=== PATIENT | male | born 1940 | race Caucasian/White ===

== ENCOUNTER → 2019-03-28 09:29 | Outpatient (CLI) | payer MEDICARE, SELFPAY ==
[2018-04-04 10:31] VITALS: BMI 24.1
[2019-03-28 10:25] LABS: AST(SGOT) 21 U/L (15-37); Alanine Aminotransfer ALT/SGPT 22 U/L (16-61); Albumin, Serum 3.4 g/dL (3.2-5.0); Alkaline Phosphatase 71 U/L (45-117); Bilirubin, Direct 0.16 mg/dL (0.00-0.30); Cholesterol 108 mg/dL (200); Globulin 3.4 g/dL (2.2-4.2); High Density Lipoprotein 39 mg/dL; Protein, Total 6.8 g/dL (6.4-8.2); Triglycerides 139 mg/dL; Very Low Density Lipoprotein 28 mg/dL (5-40)
== END ==
PROVIDERS: Family Provider Family Medicine; PCP Family Medicine; Referring Provider Internal Medicine Cardiovascular Disease; Visit Provider Internal Medicine Cardiovascular Disease
DX: I25.10 Atherosclerotic heart disease of native coronary artery without angina pectoris (principal); E78.5 Hyperlipidemia, unspecified
CPT/HCPCS: 36415; 80061; 80076

== ENCOUNTER → 2019-04-18 | Outpatient (CLI) | payer MEDICARE, SELFPAY ==
[2019-04-03 11:02] VITALS: BMI 24.0
[2019-04-18 11:13] LABS: Anion Gap 7 (5-15); BUN 43 mg/dL (7-18); Calcium,Total 8.8 mg/dL (8.5-10.1); Chloride 113 mmol/L (98-107); Creatinine, Serum 2.15 mg/dL (0.70-1.30); EST Glomerular Filtration Rate 32 mL/min (>60); Est Glom Filt Rate - Afr Amer 38 mL/min (>60); Glucose 123 mg/dL (74-106); Potassium 5.6 mmol/L (3.5-5.1); Sodium Level 143 mmol/L (136-145)
== END | disposition home or self-care (01) ==
PROVIDERS: Family Provider Family Medicine; PCP Family Medicine
DX: I25.9 Chronic ischemic heart disease, unspecified (principal)
CPT/HCPCS: 36415; 80048

== ENCOUNTER → 2019-04-27 09:11 | Outpatient (CLI) | payer MEDICARE, SELFPAY ==
[2019-04-03 11:02] VITALS: BMI 24.0
[2019-04-27 11:11] LABS: Anion Gap 2 (5-15); BUN 37 mg/dL (7-18); BUN/Creat Ratio 16.9 RATIO (10-20); Calcium,Total 8.6 mg/dL (8.5-10.1); Chloride 113 mmol/L (98-107); Creatinine, Serum 2.19 mg/dL (0.70-1.30); EST Glomerular Filtration Rate 31 mL/min (>60); Est Glom Filt Rate - Afr Amer 38 mL/min (>60); Glucose 122 mg/dL (74-106); Potassium 4.9 mmol/L (3.5-5.1); Sodium Level 139 mmol/L (136-145)
== END ==
PROVIDERS: Family Provider Family Medicine; PCP Family Medicine
DX: I50.22 Chronic systolic (congestive) heart failure (principal)
CPT/HCPCS: 36415; 80048

== ENCOUNTER → 2020-05-28 09:15 | Outpatient (CLI) | payer MEDICARE, SELFPAY ==
[2019-09-06 12:55] VITALS: BMI 22.8
[2020-05-28 10:03] LABS: Anion Gap 5 (5-15); BUN 44 mg/dL (7-18); BUN/Creat Ratio 20.6 RATIO (10-20); Calcium,Total 8.5 mg/dL (8.5-10.1); Chloride 109 mmol/L (98-107); Creatinine, Serum 2.14 mg/dL (0.70-1.30); EST Glomerular Filtration Rate 32 mL/min (>60); Est Glom Filt Rate - Afr Amer 38 mL/min (>60); Glucose 122 mg/dL (74-106); Potassium 4.8 mmol/L (3.5-5.1); Sodium Level 139 mmol/L (136-145)
== END ==
PROVIDERS: PCP Family Medicine
DX: I50.22 Chronic systolic (congestive) heart failure (principal)
CPT/HCPCS: 36415; 80048

== ENCOUNTER → 2020-10-21 11:15 | Outpatient (CLI) | payer MEDICARE, SELFPAY ==
[2020-10-21 10:16] VITALS: BMI 19.5
[2020-10-21 11:37] LABS: Absolute Lymphocyte Count 3.68 X10^3/uL (0.83-4.51); Absolute Neutrophil Count 14.2 X10^3/uL (2.0-7.7); Basophil# 0.08 X10^3/uL; Basophil% 0.4 % (0-1); Eosinophil# 0.99 X10^3/uL; Eosinophils% 4.6 % (0-5); Hematocrit 36.3 % (40-54); Hemoglobin 11.3 g/dL (13.0-16.5); Lymphocyte # 3.68 X10^3/ul (4.0); Lymphocyte % 17.2 % (19-41); Mean Corp Hgb Conc 31.1 g/dL (32-36); Mean Corpuscular Hgb 29.4 pg (27.0-32.0); Mean Corpuscular Volume 94.3 fL (80-94); Mean Platelet Vol. 9.7 fl (6.2-12.0); Monocyte# 2.09 X10^3/uL; Monocyte% 9.8 % (0-10); NRBC Flagged by Analyzer 0 % (0-5); Neutrophil # 14.21 X10^3/uL (2.7-7.7); Neutrophil % 66.2 % (47-70); POSITIVE DIFFERENTIAL YES; Platelet Count 178 K/mm3 (150-450); RBC Distribution Width CV 15.3 % (11.6-14.6); RBC Distribution Width SD 52.7 fl (35.1-43.9); Red Blood Count 3.85 M/mm3 (4.6-6.2); White Blood Count 21.4 K/mm3 (4.4-11.0)
[2020-10-21 11:41] LABS: Differential Indicated SCAN CRITERIA MET
[2020-10-21 12:02] LABS: BNP,B-Type NATRIURETIC PEPTIDE 33.3 pg/mL (0-100)
[2020-10-21 12:18] LABS: ALB/GLOB Ratio 0.8 RATIO (0.9-2.4); AST(SGOT) 45 U/L (15-37); Alanine Aminotransfer ALT/SGPT 40 U/L (16-61); Albumin, Serum 2.7 g/dL (3.2-5.0); Alkaline Phosphatase 468 U/L (45-117); Anion Gap 9 (5-15); BUN 54 mg/dL (7-18); BUN/Creat Ratio 20.3 RATIO (10-20); Calcium,Total 8.8 mg/dL (8.5-10.1); Chloride 106 mmol/L (98-107); Creatinine, Serum 2.66 mg/dL (0.70-1.30); EST Glomerular Filtration Rate 25 mL/min (>60); Est Glom Filt Rate - Afr Amer 30 mL/min (>60); Globulin 3.6 g/dL (2.2-4.2); Glucose 168 mg/dL (74-106); Magnesium 2.2 mg/dL (1.6-2.6); Potassium 5.6 mmol/L (3.5-5.1); Protein, Total 6.3 g/dL (6.4-8.2); Sodium Level 135 mmol/L (136-145); T4 Free Direct 1.15 ng/dL (0.76-1.46); Thyroid Stim Hormone (TSH) 2.44 uIU/mL (0.358-3.74)
[2020-10-22 13:37] LABS: Pathologist Review Reviewed
== END ==
PROVIDERS: PCP Family Medicine; Referring Provider Nurse Practitioner Family; Visit Provider Nurse Practitioner Family
DX: R53.83 Other fatigue (principal); R06.00 Dyspnea, unspecified; I25.10 Atherosclerotic heart disease of native coronary artery without angina pectoris; I44.7 Left bundle-branch block, unspecified; I42.8 Other cardiomyopathies; I10 Essential (primary) hypertension; E78.00 Pure hypercholesterolemia, unspecified; Z95.5 Presence of coronary angioplasty implant and graft; Z95.810 Presence of automatic (implantable) cardiac defibrillator
CPT/HCPCS: 36415; 80053; 83735; 83880; 84439; 84443; 85025

== ENCOUNTER → 2020-10-24 13:58 | Outpatient (CLI) | payer MEDICARE, SELFPAY ==
[2020-10-21 10:16] VITALS: BMI 19.5
--- NOTE | 2020-10-24 13:59 | ECHOD_ITS ---
Reason For Study: CHF Procedure This was a 2D Doppler, Color Flow transthoracic echocardiogram. The study was technically difficult. Due to respiratory interference. Exam performed in department. Left Ventricle Normal LV size. Left ventricular systolic function is normal. The estimated ejection fraction is 55 %. Stage 1 diastolic dysfunction. No regional wall motion abnormalities noted. Right Ventricle Normal RV size. ICD or pacer leads identified within the right ventricle. Normal systolic function. Atria Normal left atrium. Normal right atrium. Mitral Valve Normal mitral valve. Tricuspid Valve Normal tricuspid valve. Mild (1+) tricuspid valve insufficiency. Pulmonary artery systolic pressure is 40 mmHg. Aortic Valve Normal aortic valve. Trisinus/trileaflet aortic valve. Pulmonic Valve Normal pulmonic valve. Great Vessels Normal aortic root. The pulmonary artery is normal size. Normal inferior vena cava. Pericardium/Pleural No pericardial effusion. MMode/2D Measurements & Calculations LVIDd: 3.9 cm IVSd: 0.82 cm Ao root diam: 3.4 cm LVIDs: 2.7 cm LVPWd: 0.84 cm RVDd: 3.5 cm FS: 30.7 % LAV(MOD-bp): 29.0 ml LA A4 area: 11.7 cm2 LA dimension(2D): 2.6 cm LAV(MOD-bp) Indexed: 17.5 ml/m2 LAV(MOD-sp2): 30.4 ml LAV(MOD-sp4): 27.1 ml RA A4 area: 9.9 cm2 Time Measurements MV dec time: 0.22 sec Doppler Measurements & Calculations MV E max horace: 53.6 cm/sec Lat Peak E' Horace: 6.5 cm/sec Med Peak E' Horace: 7.7 cm/sec MV A max horace: 64.4 cm/sec E/E' lat: 8.2 E/E' med: 7.0 MV E/A: 0.83 Ao V2 max: 94.8 cm/sec LV V1 max: 80.5 cm/sec PA V2 max: 87.7 cm/sec Ao max P.6 mmHg LV V1 max P.6 mmHg PI dec slope: 190.1 cm/sec2 TR max horace: 313.7 cm/sec TR max P.7 mmHg Interpretation Summary Normal LV size. Left ventricular systolic function is normal. The estimated ejection fraction is 55 %. Pulmonary artery systolic pressure is 40 mmHg. Stage 1 diastolic dysfunction. ICD or pacer leads identified within the right ventricle. Ordering Physician: Nirav Flores Referring Physician: Stanton Leonard Performed By: Siomara Covarrubias RVT, RDCS and Student
--- NOTE | 2020-10-24 14:54 | RAD_ITS ---
ACR Level 3 findings have been noted. An addendum which confirms receipt of the report will follow. HISTORY: COUGH, FATIGUE, LEUKOCYTOSIS EXAM: XR Chest 2 Views: COMPARISON: None FINDINGS: # of images incl. paperwork: 2 Left chest wall, triple lead cardiac pacer/defibrillator is in place. Calcific plaque within the aortic arch. Some basilar lung disease is present. Disease greatest on the left. Heart is not enlarged. Kyphosis. Multilevel degenerative disc disease. Calcific plaque within the abdominal aorta and splenic artery Pulmonary vascularity is distinct. There may be small left pleural effusions. RAD/Chest PA and Lateral IMPRESSION: Left lower lobe airspace disease with left pleural effusion suggestive of pneumonia.. at 0649 Reported and signed by: Alireza Aponte MD Electronically Signed: Alireza Aponte MD at 6:48 EST Tel , Service support ,
== END ==
PROVIDERS: PCP Family Medicine; Referring Provider Nurse Practitioner Family; Visit Provider Nurse Practitioner Family
DX: I25.10 Atherosclerotic heart disease of native coronary artery without angina pectoris (principal); I44.7 Left bundle-branch block, unspecified; I42.8 Other cardiomyopathies; Z95.5 Presence of coronary angioplasty implant and graft; R05 Cough
CPT/HCPCS: 71046; 93306

== ENCOUNTER → 2020-11-05 11:31 | Outpatient (CLI) | payer MEDICARE, SELFPAY ==
[2020-10-21 10:16] VITALS: BMI 19.5
[2020-11-05 10:52] VITALS: BMI 19.4
--- NOTE | 2020-11-05 11:45 | RAD_ITS ---
STUDY: X-RAY CHEST REASON FOR EXAM: Male, 80 years old. Cough, weakness, previous pneumonia. TECHNIQUE: PA and lateral views of the chest. COMPARISON: Comparison is made with prior study dated 10/24/2020. FINDINGS: Patchy infiltrates are seen at both lung bases worse on the left side. There is a 2.6 cm x 1.8 cm nodule in the lateral aspect of the right lower lobe. Follow-up is recommended. There is no demonstrated pleural abnormality. Normal size heart. A dual-chamber pacemaker is seen on the left side. Normal mediastinum and pavan. Normal visualized pulmonary arteries. There is atherosclerotic calcification of the aortic arch with tortuosity. There are diffuse degenerative changes of the visualized thoracic spine. There is degenerative osteoarthritis of the bilateral shoulders. There is no demonstrated abnormality of the visualized soft tissue structures of the upper abdomen. RAD/Chest PA and Lateral IMPRESSION: Since prior study, there is an progressive bibasilar infiltrates more prominent on the left side. Follow-up is recommended. Electronically Signed: Scooby Solorio, at 12:40 EST , Service support ,
[2020-11-05 12:47] LABS: Hemoglobin 12.6 g/dL (13.0-16.5); Mean Corp Hgb Conc 32.3 g/dL (32-36); Mean Corpuscular Hgb 28.6 pg (27.0-32.0); Mean Corpuscular Volume 88.4 fL (80-94); Mean Platelet Vol. 9.3 fl (6.2-12.0); POSITIVE COUNT YES; POSITIVE DIFFERENTIAL YES; POSITIVE MORPHOLOGY YES; Platelet Count 187 K/mm3 (150-450); RBC Distribution Width CV 15.3 % (11.6-14.6); RBC Distribution Width SD 49.9 fl (35.1-43.9); Red Blood Count 4.41 M/mm3 (4.6-6.2)
[2020-11-05 13:03] LABS: Differential Indicated MANUAL DIFF
[2020-11-05 13:16] LABS: ALB/GLOB Ratio 0.6 RATIO (0.9-2.4); AST(SGOT) 53 U/L (15-37); Alanine Aminotransfer ALT/SGPT 37 U/L (16-61); Albumin, Serum 2.5 g/dL (3.2-5.0); Alkaline Phosphatase 753 U/L (45-117); Anion Gap 13 (5-15); BUN 96 mg/dL (7-18); BUN/Creat Ratio 18.7 RATIO (10-20); Calcium,Total 8.3 mg/dL (8.5-10.1); Chloride 95 mmol/L (98-107); Creatinine, Serum 5.14 mg/dL (0.70-1.30); EST Glomerular Filtration Rate 12 mL/min (>60); Est Glom Filt Rate - Afr Amer 14 mL/min (>60); Globulin 3.9 g/dL (2.2-4.2); Glucose 159 mg/dL (74-106); Potassium 4.5 mmol/L (3.5-5.1); Protein, Total 6.4 g/dL (6.4-8.2); Sodium Level 127 mmol/L (136-145)
[2020-11-05 13:38] LABS: White Blood Count 32.4 K/mm3 (4.4-11.0)
[2020-11-05 13:55] LABS: Eosinophil 6 % (0-5); Lymphocyte 17 % (19-41); Monocyte 12 % (0-10); Neutrophil-Band 18 % (0-5); Neutrophil-Segmented 47 % (47-70); Total Cells Counted 100 (MANUAL DIFF)
[2020-11-05 13:56] LABS: Platelet Estimate ADEQUATE (ADEQ); Red Cell Morphology NORM C+C NORMAL (NORM C&C)
[2020-11-05 13:57] LABS: Absolute Neutrophil Count 21.1 X10^3/uL (2.0-7.7)
[2020-11-05 13:58] LABS: Absolute Lymphocyte Count 5.51 X10^3/uL (0.83-4.51)
[2020-11-05 14:01] LABS: Reactive Lymphocyte 1+
[2020-11-06 10:16] LABS: Pathologist Review Reviewed
== END ==
LOC: LAB.FUTURE 11:34 → RAD 11:37
PROVIDERS: PCP Family Medicine; Referring Provider Nurse Practitioner Family; Visit Provider Nurse Practitioner Family
DX: J18.9 Pneumonia, unspecified organism (principal)
CPT/HCPCS: 36415; 71046; 80053; 85025

== ENCOUNTER 2020-11-05 14:45 | Inpatient (IN) | payer MEDICARE, SELFPAY ==
[2020-11-05] VITALS (22 sets, daily range): BP systolic 68–135; BP diastolic 31–77; PULSE 72–107; RESP 12–22; TEMP 35.7–36.7; O2SAT 93–100; BMI 19.4; BMI 42.7; BMI 20.7; BMI 20.1
--- NOTE | 2020-11-05 15:07 | ED.VISSUMM ---
- ER Visit Summary Date of Service: 11/05/20 Chief Complaint: Cough, recent pneumonia History of Present Illness: The patient is a 80 M who presents with worsening cough. Patient was diagnosed with pneumonia 2 weeks ago. Patient had a follow-up appointment today and the chest x-ray shows worsening pneumonia. Patient also had lab work drawn which was getting worse. Patient states he feels weak all over. Patient denies any shortness of breath. Patient denies any sputum production. Patient denies any fevers or chills. Patient denies any nausea or vomiting. Patient denies any chest pain. Physical Examination: Vital signs are stable except for low blood pressure of 81/47 and a mild tachycardia of 107. Patient is afebrile. Patient is in no acute distress. Oral mucosa is pink and somewhat dry. Neck is supple. Trachea is midline. There is no JVD. Heart was regular and tachycardic. Lungs were diminished bilaterally. There is good respiratory effort noted. Abdomen is soft. Bowel sounds are normal. There is no tenderness. Cranial nerves II through XII are intact. There are no focal motor or sensory deficits. Test Results: Chest x-ray from earlier today was reviewed and does show worsening bilateral lower lobe infiltrates. CBC from earlier today shows a leukocytosis of 32.7. Comprehensive metabolic profile from earlier today showed a creatinine of 5.19 which was increased from previous results. EKG was obtained. On my interpretation, there is a paced rhythm with a rate of 93. There are no acute ST or T wave changes. PT with INR and PTT were normal. Troponin was normal. COVID-19 rapid antigen was obtained and was negative. Blood cultures were obtained and are pending. Urinalysis was ordered. There is no evidence of urinary tract infection. Emergency Department Course and Treatment: Patient was given IV fluids. Patient's blood pressure improved to 135/74. Patient was started on Zosyn and vancomycin. Patient is resting comfortably on reevaluation. Case was discussed with the hospitalist. Patient will be admitted to PCU. Family understands and is agreeable with the plan. All questions were answered. Disposition: Admit to hospital Impression: 1. Pneumonia 2. Severe sepsis Critical care time: 45 minutes. This was time spent obtaining history, performing physical examination, documenting, interpreting test results, discussion with consultants, and determining disposition. This note was generated with Dragon dictation software. It may contain incorrect words, spelling, and punctuation that were not noted in review of the chart prior to signing ED Disposition - Plan for ED Patient: Disposition: Acute Care Hospital [facility] Diagnosis: Pneumonia
[2020-11-05] MEDS: 0.9% Normal Saline 1,000 ML 1000 ML IV (15:29)
[2020-11-05 15:49] LABS: International Normalized Ratio 1.2; Prothrombin Time (Protime)PT. 14.8 SECONDS (11.7-14.9)
[2020-11-05 15:50] LABS: Partial Thromboplast Time 26.7 Seconds (24.1-36.2)
[2020-11-05 16:29] LABS: Lactic Acid 3.6 mmol/L (0.4-1.9)
[2020-11-05] MEDS: 0.9% Normal Saline 1,000 ML 999 ML IV ×2 (17:01→18:36)
[2020-11-05 17:02] LABS: Mucous, Urine 0 SEEN /hpf (<or=2+); Red Blood Cells-Urine 0 SEEN /hpf (0-5); Squamous Epithelial Cells - UA 0 SEEN /hpf (0-5); White Blood Cells 0 SEEN /hpf (0-5)
[2020-11-05 17:06] LABS: Color, Urine Yellow (Yellow); Glucose, Dipstick Normal (Normal); Ketone-Dipstick Negative (Negative); Leukocyte Esterase-Dipstick Negative /ul (Negative); Nitrite-Dipstick Negative (Negative); Occult Blood-Urine 50 /ul (Negative); Protein-Dipstick 100 mg/dl (Negative); Specific Gravity, Urine 1.015 (1.002-1.030); Urine Bilirubin Dipstick Negative (Negative); Urine Clarity Clear (Clear); Urine Urobilinogen Normal (Normal)
[2020-11-05 17:17] LABS: Amorphous Sediment 1+; Bacteria 2+ /hpf (None Seen)
--- NOTE | 2020-11-05 19:15 | PCS.PANDOC ---
PANDEMIC DOCUMENTATION INITIATED: Date: 11/05/2020 Time: 1914
[2020-11-05 19:30] LABS: Reflex Lactate? Y
[2020-11-05] MEDS: 0.9% Normal Saline 1,000 ML 150 ML IV (20:05)
[2020-11-05 20:35] LABS: Lactic Acid 2.1 mmol/L (0.4-1.9)
[2020-11-05] MEDS: 0.9% Saline Lock 10 ML Syringe IV (20:47)
[2020-11-05] MEDS: Heparin Injection (Vial) 5,000 UNIT/ML VIAL 5000 UNIT SC (20:49)
--- NOTE | 2020-11-05 20:57 | HP.PCM_ITS ---
Problem List (1) Shortness of breath Status: Acute (2) Community acquired pneumonia Status: Acute Qualifiers: Laterality: left Lung location: lower lobe of lung Qualified Code(s): J18.9 - Pneumonia, unspecified organism History of Present Illness Date of Admission: 11/05/20 Chief Complaint: Shortness of breath, community-acquired pneumonia The patient is a 80 year old M who was seen in the emergency room at [facility] after being directed there by his PCP due to increased shortness of breath and community-acquired pneumonia. Patient had been treated as an outpatient with Levaquin for 10 days for community-acquired pneumonia, according to the , he had not improved during this time. Patient has a dry cough, states he is weak and he is not running a fever at home. Patient had outpatient labs drawn on 11/05/2020 which were abnormal for white blood cell count of 32.4, hemoglobin was 12.6, chemistry profile showed a sodium of 127, chloride of 95, creatinine of 5.14, BUN of 96, alkaline phosphatase of 753, AST of 53, and the patient's lactic acid was 2.1. Patient's blood pressure was low in the emergency room and he was given additional fluids with some rise in the patient's blood pressure. Patient required only 2 L of oxygen to maintain his pulse ox. Patient was afebrile. Patient's rapid Covid test was negative. Patient was given IV vancomycin and Zosyn in the emergency room, he will be admitted to PCU for severe sepsis and community-acquired pneumonia with acute renal failure. I will keep the patient on Zosyn and add Zithromax for further coverage, I talked briefly with infectious diseases tonight he will see the patient in consultation, patient will also need to see pulmonary medicine. Patient's history was obtained from the patient's due to patient's lethargy and fatigue. Past Medical History Past Medical History (Chronic Problems): Chronic Problems (Last Reviewed 07/04/20 @ 14:[address] 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 Bowen Aranda MD) Father CAD (coronary artery disease) Hypertension Mother CVA (cerebral vascular accident) Heart disease Myocardial infarction Sister Breast cancer History Items: Heart Disease Paternal Family History: Family History (Last Reviewed 07/04/20 @ 14:[address] Bowen Aranda MD) Father CAD (coronary artery disease) Hypertension Mother CVA (cerebral vascular accident) Heart disease Myocardial infarction Sister Breast cancer History Items: Heart Disease Review of Systems Comment: View of systems was unobtainable from the patient, medical information was obtained from the patient's spouse due to patient's fatigue and somnolence. VTE Information - Inpt Only VTE Present on Admission: No VTE Mechan Device Prophylaxis: None VTE Pharm Prophylaxis ordered?: Yes Patient Problems: Active and Suspected Problems (Last Reviewed 07/04/20 @ 14:[address] Bowen Aranda MD) Pneumonia (Acute) - Physical Exam Vitals/I&O's: Vital Signs Temp Pulse Resp BP Pulse Ox 97.8 F 93 18 93/77 98 11/05/20 19:30 11/05/20 20:06 11/05/20 19:30 11/05/20 19:30 11/05/20 19:30 Oxygen Flow Rate (L/min) 2 Oxygen Delivery Method Room Air Weight: 58.1 kg Body Mass Index (BMI) 20.0 Intake and Output for Last 24 Hours 11/03/20 11/04/20 11/05/20 23:59 23:59 23:59 Intake Total 3740 / 3740 Balance 3740 / 3740 General: Cooperative, No apparent distress, Well developed, Lethargic HEENT: Atraumatic, PERRLA, EOMI, Normocephalic Oral: Moist Mucosa Neck: Supple, No JVD, Negative Carotid Bruits, Trachea Midline, Thyroid Normal Size and Texture Lungs: Normal air movement, No rhonchi, No wheeze, Rales - Inspiratory rales over the left lower lung field Cardiovascular: Regular rate, Regular Rhythm, Normal S1, Normal S2, No murmurs, PMI Normal, No rub noted Abdomen: Bowel Sounds Present, Soft, Non Tender, Non-Distended, No hernias noted Extremities: No clubbing, No cyanosis, No edema, Capillary Refill Less than 3 Seconds Skin: No rashes, No breakdown Musculoskeletal: No Tenderness to Palpation of Joints or Extremities Neurological: Cranial nerves II-XII grossly intact, Neuro grossly intact, Sensory exam intact to light touch and pain Psych/Mental Status: Flat Affect, - - Patient is lethargic and fatigued Microbiology Past 72 Hours 11/05/20 16:55 Urine, Random Legionella Antigen - Final 11/05/20 16:55 Urine, Random Streptococcus pneumoniae Antigen (M - Final 11/05/20 15:30 Mucosa - Nose SARS-CoV-2 Antigen (Rapid) - Final Laboratory Results 11/05/20 15:25: Troponin I 0.020 11/05/20 15:25: PT 14.8, INR 1.2, APTT 26.7 11/05/20 15:25: Lactic Acid 3.6 H* 11/05/20 16:55: Urine Color Yellow, Urine Clarity Clear, Urine pH 5.0, Ur Specific [place] 1.015, Urine Protein 100 H, Urine Glucose (UA) Normal, Urine Ketones Negative, Urine Occult Blood 50 H, Urine Nitrite Negative, Urine Bilirubin Negative, Urine Urobilinogen Normal, Ur Leukocyte Esterase Negative, Urine RBC 0 SEEN, Urine WBC 0 SEEN, Ur Squamous Epith Cells 0 SEEN, Amorphous Sediment 1+, Urine Bacteria 2+, Urine Mucus 0 SEEN 11/05/20 19:49: Lactic Acid 2.1 H* Current Medications Acetaminophen (Acetaminophen 325 Mg Tablet) 650 mg PO Q6H PRN PRN PRN Reason: Pain Score 1-10/Temp > 100.7 F Albuterol Sulfate (Albuterol 2.5 Mg/3 Ml Vial.Neb.) 2.5 mg INHALATION Q2H PRN PRN PRN Reason: SOB/Wheezing Albuterol/Ipratropium (Ipratropium/Albuterol Sulfate 3 Ml Ampul.Neb) 3 ml INHALATION Q6H.RT [facility] Aspirin (Aspirin E.C. 81 Mg Tablet) 81 mg PO DAILY@0800 [facility] Atorvastatin Calcium (Atorvastatin Calcium 40 Mg Tablet) 40 mg PO QHS [facility] Heparin Sodium (Porcine) (Heparin Injection (Vial) 5,000 Unit/Ml Vial) 5,000 unit SC Q12 [facility] Last Admin: 11/05/20 20:49 Dose: 5,000 unit Documented by: Sodium Chloride () 1,000 mls @ 150 mls/hr IV .Q6H40M [facility] Last Infusion: 11/05/20 20:45 Dose: 0 mls/hr Documented by: Azithromycin 500 mg/ Dextrose 255 mls @ 250 mls/hr IV Q24@2200 [facility] Stop: 11/11/20 22:01 Azithromycin 500 mg/ Dextrose 255 mls @ 250 mls/hr IV X1 ONE Stop: 11/05/20 21:01 Last Admin: 11/05/20 20:12 Dose: 250 mls/hr Documented by: Piperacillin Sod/Tazobactam (Sod 3.375 gm/ Sodium Chloride) 50 mls @ 12.5 mls/hr IV Q8 LUZ Sodium Chloride () 500 mls @ 500 mls/hr IV .Q1H LUZ Stop: 11/05/20 21:44 Last Admin: 11/05/20 20:45 Dose: 500 mls/hr Documented by: Nitroglycerin (Nitroglycerin (Inpatient Use) 0.4 Mg Tab.Subl) 0.4 mg SUBLINGUAL Q5M PRN PRN Reason: chest pain Nutritional Formula (Lactose Free) (Ensure Enlive 120 Ml Liquid) 120 ml PO 4X/DAY LUZ Last Admin: 11/05/20 20:50 Dose: 120 ml Documented by: Ondansetron HCl (Ondansetron 4 Mg/2 Ml Vial) 4 mg IV Q8H PRN PRN PRN Reason: NAUSEA/VOMITING Sodium Chloride (0.9% Saline Lock 10 Ml Syringe) 10 - 40 ml IV UD PRN PRN Reason: SALINE FLUSH Last Admin: 11/05/20 20:47 Dose: 10 ml Documented by: Assessment/Plan All Active Problems (Last Reviewed 07/04/20 @ 14:[address] Bowen Aranda MD) Pneumonia (Acute) Shortness of breath (Acute) Community acquired pneumonia (Acute) History of coronary artery stent placement (Resolved 05/21/09) #1 severe sepsis secondary to community-acquired pneumonia with failed outpatient treatment-patient will be admitted to PCU, he will be seen in consultation by pulmonary medicine and infectious diseases, I will obtain a CT of the chest as well as the abdomen and pelvis tonight. Patient will be maintained on Zosyn and Zithromax #2 community-acquired pneumonia with failed outpatient treatment #3 acute renal failure on a backdrop of chronic kidney disease stage III/stage IV-patient will be given IV fluids, renal functions will be monitored #4 cachexia-etiology unclear, according to patient's , patient has been losing weight since June of this year and has lost approximately 20 pounds, he will be seen by nutritional services #5 history of nonischemic cardiomyopathy-patient's most recent echocardiogram done on 10/24/2020 shows an EF of 55% with mild pulmonary hypertension. #6 mild pulmonary hypertension Inpatient E&M: [id number] Init Hosp L3
--- NOTE | 2020-11-05 22:43 | NURSING ---
Addendum entered by Ayesha Foster 11/05/20 22:49: Yudy updated on pt status. Original Note: Dr. Rios ordered pt to be transfered to ICU d/t hypotension even after boluses. Called report to Ahmet Weber RN. Transfered pt to ICU04. Shelbi Foster RN.
--- NOTE | 2020-11-05 22:48 | PCM.PN.BLA ---
Progress Note Nursing staff called because patient remained hypotensive in spite of IV fluid bolus. He received 1.5 L of IV fluid bolus in the ED and he has been on maintenance fluid at 150 cc/h since admission. Blood pressure remained around 70-80 systolic. Patient denied any dizziness or lightheadedness. Denied chest pain or shortness of breath. He was given another 500 cc of fluid bolus and his blood pressure remained low. He is already on IV Zosyn and Zithromax. COVID-19 antigen came back negative. Chest x-ray reviewed. Plan: Transfer to ICU, critical care consult, will do COVID-19 PCR, continue IV antibiotics, start IV Levophed drip. STROKE Vital Signs/Narrative: Vital Signs Temp Pulse Resp BP BP Pulse Ox 11/05/20 22:16 97.4 F L 96 22 H 69/34 L 97 11/05/20 22:00 74/37 L 11/05/20 21:45 68/31 L 11/05/20 20:20 97.5 F L 95 20 H 76/37 L 97 11/05/20 20:06 93 11/05/20 19:30 97.8 F 96 18 93/77 98
[2020-11-06] VITALS (55 sets, daily range): BP systolic 78–112; BP diastolic 45–65; PULSE 94–111; RESP 14–23; TEMP 35.9–36.7; O2SAT 95–100
[2020-11-06] MEDS: 0.9% Normal Saline 1,000 ML 150 ML IV ×4 (03:16→23:31)
[2020-11-06 03:47] LABS: Hematocrit 34.7 % (40-54); Hemoglobin 11.4 g/dL (13.0-16.5); Mean Corp Hgb Conc 32.9 g/dL (32-36); Mean Corpuscular Hgb 29.4 pg (27.0-32.0); Mean Corpuscular Volume 89.4 fL (80-94); POSITIVE COUNT YES; POSITIVE DIFFERENTIAL YES; POSITIVE MORPHOLOGY YES; Platelet Count 174 K/mm3 (150-450); RBC Distribution Width CV 15.5 % (11.6-14.6); RBC Distribution Width SD 50.4 fl (35.1-43.9); Red Blood Count 3.88 M/mm3 (4.6-6.2)
[2020-11-06 03:52] LABS: Differential Indicated MANUAL DIFF; White Blood Count 36.6 K/mm3 (4.4-11.0)
[2020-11-06 04:03] LABS: ALB/GLOB Ratio 0.6 RATIO (0.9-2.4); AST(SGOT) 64 U/L (15-37); Alanine Aminotransfer ALT/SGPT 33 U/L (16-61); Albumin, Serum 1.9 g/dL (3.2-5.0); Alkaline Phosphatase 654 U/L (45-117); Anion Gap 11 (5-15); BUN 86 mg/dL (7-18); BUN/Creat Ratio 19.5 RATIO (10-20); Calcium,Total 7.1 mg/dL (8.5-10.1); Chloride 105 mmol/L (98-107); Creatinine, Serum 4.41 mg/dL (0.70-1.30); EST Glomerular Filtration Rate 14 mL/min (>60); Est Glom Filt Rate - Afr Amer 17 mL/min (>60); Estimated Creatinine Clearance 11.34 ml/min; Globulin 3.2 g/dL (2.2-4.2); Glucose 116 mg/dL (74-106); Potassium 4.4 mmol/L (3.5-5.1); Protein, Total 5.1 g/dL (6.4-8.2); Sodium Level 131 mmol/L (136-145)
[2020-11-06 05:02] LABS: Total Cells Counted 100 (MANUAL DIFF)
[2020-11-06 05:06] LABS: Eosinophil 4 % (0-5); Lymphocyte 8 % (19-41); Metamyelocyte 1 % (0-1); Monocyte 9 % (0-10); Myelocyte 2 (0-0); Neutrophil-Band 6 % (0-5); Neutrophil-Segmented 70 % (47-70)
[2020-11-06 05:07] LABS: Absolute Lymphocyte Count 2.92 X10^3/uL (0.83-4.51); Absolute Neutrophil Count 27.8 X10^3/uL (2.0-7.7); Lymphocyte # 2.92 X10^3/ul (4.0); Neutrophil # 27.79 X10^3/uL (2.7-7.7)
[2020-11-06 05:09] LABS: Platelet Estimate ADEQUATE (ADEQ)
[2020-11-06 05:12] LABS: Burr Cells RARE; Ovalocyte RARE
--- NOTE | 2020-11-06 06:19 | PCM.CON.CC ---
Reason for Consult Date of Consultation: 11/06/20 Reason for Consultation: Septic shock History of Present Illness: The patient is an 80-year-old male, with a history as outlined below, who presented to the emergency department on November 05 with a worsening cough. The patient does have a history of coronary artery disease status post angioplasty and stenting of his RCA, along with known heart failure. The patient is quite a poor historian with unclear baseline mental status, so only limited history was able to be obtained from the patient. I did call and personally speak with the patient's , Yudy, who indicated to me that the patient has been more confused over the last 3 to 4 weeks and has been losing weight unintentionally as well. She did report that it is their wishes from a CODE STATUS perspective to be made DNR CCA without intubation. On presentation to the emergency department, the patient was noted to be afebrile but was tachycardic and tachypneic. Blood pressures were marginal at 81/47 mmHg. The patient had an elevated white blood cell count to 32,000. Lactate was elevated to 3.6. Troponin was negative. Chemistry profile revealed a creatinine of 5.14. Chest x-ray revealed patchy bilateral infiltrates in the lower lung zones. The patient was initially treated with supplemental IV fluids. Blood pressures apparently improved. The patient was started on broad-spectrum antimicrobials. He was then admitted to the progressive care unit. However, overnight, the patient developed fluid refractory hypotension, which necessitated his transfer to the medical intensive care unit for further management. The patient did have to be started on Levophed, which is currently infusing at 10 mcg/min. Past Medical History Past Medical History (Chronic Problems): Chronic Problems (Last Reviewed 07/04/20 @ 14:[address] Bowen Aranda MD) Atherosclerosis of coronary artery of [place] heart without angina pectoris (Chronic) Biventricular ICD (implantable cardioverter-defibrillator) in place (Chronic 08/02/14) Nonischemic cardiomyopathy (Chronic) Left bundle-branch block (Chronic) Essential (primary) hypertension (Chronic) HLD (hyperlipidemia) (Chronic) Medical History: Medical History (Last Reviewed 07/04/20 @ 14:[address] 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 Bowen Aranda MD) History of coronary artery stent placement (Resolved) Onset Date: 05/21/09 Z95.5 [id number] RCA 05/21/2009 Biventricular ICD (implantable cardioverter-defibrillator) in place (Chronic) Onset Date: 08/02/14 Z95.810 ICD (implantable cardioverter-defibrillator) in place Onset Date: 08/02/14 Z95.810 01/21, upgrade ICD BI-V 08/02/14 Surgical History: - - ICD placement Psychiatric History: No pertinent psych hx Lives: Spouse/ Significant Other Smoking Status: Former smoker Tobacco Use: Cigarettes Alcohol: Rare Drugs: None - *Family History Maternal Family History: Family History (Last Reviewed 07/04/20 @ 14:[address] Bowen Aranda MD) Father CAD (coronary artery disease) Hypertension Mother CVA (cerebral vascular accident) Heart disease Myocardial infarction Sister Breast cancer History Items: Heart Disease Paternal Family History: Family History (Last Reviewed 07/04/20 @ 14:[address] Bowen Aranda MD) Father CAD (coronary artery disease) Hypertension Mother CVA (cerebral vascular accident) Heart disease Myocardial infarction Sister Breast cancer History Items: Heart Disease Review of Systems Unable to obtain accurate/complete ROS d/t: Due to underlying encephalopathy/altered mentation Patient Problems: Active and Suspected Problems (Last Reviewed 07/04/20 @ 14:[address] Bowen Aranda MD) Pneumonia (Acute) Shortness of breath (Acute) Community acquired pneumonia (Acute) Objective: The patient's most recent lab work, culture data and imaging studies have all been personally reviewed. Coronavirus PCR was negative on November 05. Coronavirus rapid antigen testing was also negative. Strep and urine Legionella antigens were negative. Blood and urine cultures are pending. - Physical Exam Vitals/I&O's: Vital Signs Temp Pulse Resp BP Pulse Ox 98.0 F 99 14 102/57 L 96 11/06/20 00:00 11/06/20 05:00 11/06/20 05:00 11/06/20 05:00 11/06/20 05:00 Oxygen Flow Rate (L/min) 2 Oxygen Delivery Method Room Air Weight: 132 lb 4.8 oz Body Mass Index (BMI) 20.0 Intake and Output for Last 24 Hours 11/04/20 11/05/20 11/06/20 23:59 23:59 23:59 Intake Total 4499.70 / 4502.05 966.95 / 966.95 Output Total 0 / 0 150 / 150 Balance 4499.70 / 4502.05 816.95 / 816.95 General: Alert, Confused, Disoriented HEENT: Atraumatic, PERRLA, Normocephalic Oral: Dry Mucosa Neck: Supple, No Nodes, Trachea Midline Lungs: No rhonchi, No wheeze, No rales, Diminished Cardiovascular: Normal S1, Normal S2, Tachycardic Abdomen: Bowel Sounds Present, Soft, Non Tender Extremities: No clubbing, No cyanosis, Edema Skin: No breakdown Musculoskeletal: Cachexia Lymphatic: No Cervical, Supraclavicular, or Inguinal Adenopathy Neurological: - - No focal neurological deficits. Psych/Mental Status: Flat Affect Labs (Last 48 Hours) 11/05/20 11/05/20 11/05/20 15:25 15:25 15:25 WBC RBC Hgb Hct MCV MCH MCHC RDW Std Deviation RDW Coeff of Bala Plt Count MPV Neut % (Auto) Absolute Neuts (auto) Absolute Lymphs (auto) Total Counted Neutrophils % (Manual) Band Neutrophils % Lymphocytes % (Manual) Monocytes % (Manual) Eosinophils % (Manual) Metamyelocytes % Myelocytes % Diff Path Review Platelet Estimate Ovalocytes [place] Cells PT 14.8 INR 1.2 APTT 26.7 Sodium Potassium Chloride Carbon Dioxide Anion Gap BUN Creatinine Estim Creat Clear Calc Est GFR (MDRD) Af Amer Est GFR (MDRD) Non-Af BUN/Creatinine Ratio Glucose Lactic Acid 3.6 H* Calcium Total Bilirubin AST ALT Alkaline Phosphatase Troponin I 0.020 Total Protein Albumin Globulin Albumin/Globulin Ratio Urine Color Urine Clarity Urine pH Ur Specific [place] Urine Protein Urine Glucose (UA) Urine Ketones Urine Occult Blood Urine Nitrite Urine Bilirubin Urine Urobilinogen Ur Leukocyte Esterase Urine RBC Urine WBC Ur Squamous Epith Cells Amorphous Sediment Urine Bacteria Urine Mucus COVID-19 ([facility]) 11/05/20 11/05/20 11/05/20 16:55 19:49 23:20 WBC RBC Hgb Hct MCV MCH MCHC RDW Std Deviation RDW Coeff of Bala Plt Count MPV Neut % (Auto) Absolute Neuts (auto) Absolute Lymphs (auto) Total Counted Neutrophils % (Manual) Band Neutrophils % Lymphocytes % (Manual) Monocytes % (Manual) Eosinophils % (Manual) Metamyelocytes % Myelocytes % Diff Path Review Platelet Estimate Ovalocytes Case Cells PT INR APTT Sodium Potassium Chloride Carbon Dioxide Anion Gap BUN Creatinine Estim Creat Clear Calc Est GFR (MDRD) Af Amer Est GFR (MDRD) Non-Af BUN/Creatinine Ratio Glucose Lactic Acid 2.1 H* Calcium Total Bilirubin AST ALT Alkaline Phosphatase Troponin I Total Protein Albumin Globulin Albumin/Globulin Ratio Urine Color Yellow Urine Clarity Clear Urine pH 5.0 Ur Specific [place] 1.015 Urine Protein 100 H Urine Glucose (UA) Normal Urine Ketones Negative Urine Occult Blood 50 H Urine Nitrite Negative Urine Bilirubin Negative Urine Urobilinogen Normal Ur Leukocyte Esterase Negative Urine RBC 0 SEEN Urine WBC 0 SEEN Ur Squamous Epith Cells 0 SEEN Amorphous Sediment 1+ Urine Bacteria 2+ Urine Mucus 0 SEEN COVID-19 ([facility]) Not Detected 11/06/20 11/06/20 03:25 03:25 WBC 36.6 H* RBC 3.88 L Hgb 11.4 L Hct 34.7 L MCV 89.4 MCH 29.4 MCHC 32.9 RDW Std Deviation 50.4 H RDW Coeff of Bala 15.5 H Plt Count 174 MPV 10.0 Neut % (Auto) Not Reportable Absolute Neuts (auto) 27.8 H Absolute Lymphs (auto) 2.92 Total Counted 100 Neutrophils % (Manual) 70 Band Neutrophils % 6 H Lymphocytes % (Manual) 8 L Monocytes % (Manual) 9 Eosinophils % (Manual) 4 Metamyelocytes % 1 Myelocytes % 2 H Diff Path Review May foll Platelet Estimate ADEQUATE Ovalocytes RARE Case Cells RARE PT INR APTT Sodium 131 L Potassium 4.4 Chloride 105 Carbon Dioxide 15.0 L Anion Gap 11 BUN 86 H Creatinine 4.41 H Estim Creat Clear Calc 11.34 Est GFR (MDRD) Af Amer 17 L Est GFR (MDRD) Non-Af 14 L BUN/Creatinine Ratio 19.5 Glucose 116 H Lactic Acid Calcium 7.1 L Total Bilirubin 0.70 AST 64 H ALT 33 Alkaline Phosphatase 654 H Troponin I Total Protein 5.1 L Albumin 1.9 L Globulin 3.2 Albumin/Globulin Ratio 0.6 L Urine Color Urine Clarity Urine pH Ur Specific [place] Urine Protein Urine Glucose (UA) Urine Ketones Urine Occult Blood Urine Nitrite Urine Bilirubin Urine Urobilinogen Ur Leukocyte Esterase Urine RBC Urine WBC Ur Squamous Epith Cells Amorphous Sediment Urine Bacteria Urine Mucus COVID-19 ([facility]) Microbiology 11/05/20 16:55 Urine, Random Legionella Antigen - Final 11/05/20 16:55 Urine, Random Streptococcus pneumoniae Antigen (M - Final 11/05/20 15:30 Mucosa - Nose SARS-CoV-2 Antigen (Rapid) - Final Current Medications Acetaminophen (Acetaminophen 325 Mg Tablet) 650 mg PO Q6H PRN PRN PRN Reason: Pain Score 1-10/Temp > 100.7 F Albuterol Sulfate (Albuterol 2.5 Mg/3 Ml Vial.Neb.) 2.5 mg INHALATION Q2H PRN PRN PRN Reason: SOB/Wheezing Albuterol/Ipratropium (Ipratropium/Albuterol Sulfate 3 Ml Ampul.Neb) 3 ml INHALATION Q6H.RT LUZ Aspirin (Aspirin E.C. 81 Mg Tablet) 81 mg PO DAILY@0800 [facility] Atorvastatin Calcium (Atorvastatin Calcium 40 Mg Tablet) 40 mg PO QHS [facility] Heparin Sodium (Porcine) (Heparin Injection (Vial) 5,000 Unit/Ml Vial) 5,000 unit SC Q12 [facility] Last Admin: 11/05/20 20:49 Dose: 5,000 unit Documented by: Sodium Chloride () 1,000 mls @ 150 mls/hr IV .Q6H40M [facility] Last Admin: 11/06/20 03:16 Dose: 150 mls/hr Documented by: Azithromycin 500 mg/ Dextrose 255 mls @ 250 mls/hr IV Q24@2200 [facility] Stop: 11/11/20 22:01 Piperacillin Sod/Tazobactam (Sod 3.375 gm/ Sodium Chloride) 50 mls @ 12.5 mls/hr IV Q12 [facility] Norepinephrine Bitartrate 8 mg (/ Sodium Chloride) 250 mls @ 9.375 mls/hr CONT INF .[id number] [facility]; Protocol Last Titration: 11/06/20 05:00 Dose: 10 mcg/min, 18.8 mls/hr Documented by: Nitroglycerin (Nitroglycerin (Inpatient Use) 0.4 Mg Tab.Subl) 0.4 mg SUBLINGUAL Q5M PRN PRN Reason: chest pain Nutritional Formula (Lactose Free) (Ensure Enlive 120 Ml Liquid) 120 ml PO 4X/DAY [facility] Last Admin: 11/05/20 20:50 Dose: 120 ml Documented by: Ondansetron HCl (Ondansetron 4 Mg/2 Ml Vial) 4 mg IV Q8H PRN PRN PRN Reason: NAUSEA/VOMITING Sodium Chloride (0.9% Saline Lock 10 Ml Syringe) 10 - 40 ml IV UD PRN PRN Reason: SALINE FLUSH Last Admin: 11/05/20 20:47 Dose: 10 ml Documented by: Assessment/Plan Active and Suspected Problems (Last Reviewed 07/04/20 @ 14:[address] Bowen Aranda MD) Pneumonia (Acute) Shortness of breath (Acute) Community acquired pneumonia (Acute) RECOMMENDATIONS: 1. Check MRSA screen and respiratory viral panel. 2. Discontinue scheduled bronchodilators. 3. Continue Levophed to maintain a mean arterial pressure at or above 65 mmHg. 4. Continue gentle IV fluid hydration. 5. Obtain CT chest. 6. Dietary consultation due to unintentional weight loss. 7. Physical therapy evaluation once medically stabilized. IMPRESSIONS: 1. Septic shock The patient was initially admitted to the hospital with worsening cough and radiographic evidence of worsening bilateral pneumonia. The patient initially met severe sepsis criteria, but then developed fluid refractory hypotension necessitating vasopressor support. He was subsequently transferred to the medical intensive care unit. At the present time, agree with continuing broad-spectrum antimicrobial coverage. Levophed will be continued to maintain a mean arterial pressure at or above 65 mmHg. 2. Acute on chronic kidney disease Likely prerenal in etiology with a component of ischemic ATN in the setting of septic shock. Plan to continue vasopressor support to maintain a mean arterial pressure at or above 65 mmHg. 3. Encephalopathy Potentially metabolic in etiology and related to underlying infection. The patient has apparently been declining from a mental status perspective over the last 3 to 4 weeks. If the patient's mentation does not begin to improve with treatment of his infection, recommend dedicated head imaging. 4. Heart failure with preserved ejection fraction/pulmonary hypertension Continue current supportive measures as noted above. 5. Advanced age/hyperlipidemia/history of coronary artery disease Complicates care, management, recovery and prognosis. Continue home medications as indicated. CODE status: Discussed CODE status at length including difference between FULL code, DNR-CCA and DNR-CC status. Following discussions about the differences in these status, patient's requested DNR CCA without intubation CODE STATUS. TIME: 42 minutes of critical care time, independent of procedures, was spent addressing the patient's septic shock, acute on chronic kidney disease, encephalopathy, heart failure with preserved ejection fraction, review of all data and collaboration with the care team. [id number]) [id number] Critical care first hour
[2020-11-06] MEDS: Ipratropium/Albuterol Sulfate 3 ML AMPUL.NEB INHALATION (07:01)
--- NOTE | 2020-11-06 08:14 | PCM.RX.CS ---
Consult Pharmacy has been consulted to manage selected antiobiotic: Vancomycin Type of Consult: New start Suspected Infection: Sepsis Labs: Sodium 131 mmol/L (136-145) L 11/06/20 03:25 Potassium 4.4 mmol/L (3.5-5.1) 11/06/20 03:25 Chloride 105 mmol/L (98-107) 11/06/20 03:25 Carbon Dioxide 15.0 mmol/L (21.0-32.0) L 11/06/20 03:25 Anion Gap 11 (5-15) 11/06/20 03:25 BUN 86 mg/dL (7-18) H 11/06/20 03:25 Creatinine 4.41 mg/dL (0.70-1.30) H 11/06/20 03:25 Est GFR (MDRD) Af Amer 17 mL/min (>60) L 11/06/20 03:25 Est GFR (MDRD) Non-Af 14 mL/min (>60) L 11/06/20 03:25 BUN/Creatinine Ratio 19.5 RATIO (10-20) 11/06/20 03:25 Glucose 116 mg/dL (74-106) H 11/06/20 03:25 Microbiology: Microbiology 11/05/20 16:55 Urine, Random Legionella Antigen - Final 11/05/20 16:55 Urine, Random Streptococcus pneumoniae Antigen (M - Final 11/05/20 15:30 Mucosa - Nose SARS-CoV-2 Antigen (Rapid) - Final Weight used for dosin kg Estimated Creatinine Clearance: 11ml/min Goal Trough: 15-20 mcg/mL Pharmacy Plan for Drug Dosing: NEW START IV VANCOMYCIN Consulting Physician: Wild Indication: Severe Sepsis, Pneumonia Goal Trough: 15-20 SrCr: 4.41 CrCl: 11.34 Comments: pt is currently not on dialysis. pt received a x1 dose of 2000mg in the er on 11/05/20 at 1826. due to renal function recommend drawning a random level on 11/07 at 0600 and re-dosing based on that result. Vancomcyin Dose: none due to renal function Pending Level: 11/07 at 0600 Pharmacy Service will continue to monitor and adjust dosing as required. Follow-Up Labs: Trough Vancomycin - 11/07 at 0600 (random)
--- NOTE | 2020-11-06 09:12 | CASEMGMT ---
RN CM Assessment Note Introduced role of CM to patient's via phone. Patient is confused and unable to participate in assessment. Demographics, PCP verified. states until recent illness, patient was independent, however became very weak past few days. Their children helped him up the stairs and she assisted with ADL's. Patient would use cane only out of doors. They have a walker and wheelchair available if needed. Presentation: recent history of pneumonia 2 weeks ago. Saw PCP day of admission and had worsening pneumonia Diagnosis: pneumonia, sepsis PCP: Dr. Leonard Specialists: Dr. Aranda Insurance: [facility] Preferred Pharmacy: [facility] Prescription Benefit: yes LNOK: Living Arrangements: Lives in two story home with bedroom, baths upstairs. Tranportation: family DME: cane walker wheelchair only. HHC: none SNF: none Patient DC Goals: home DC Plan: undetermined. Recommend PT/OT when medically ready. CM available for discharge planning coordination. Contact CM for any concerns/needs that may arise. Yon OSORION RN ACM
[2020-11-06] MEDS: TITRATION PARAMETER CHANGE 1 EACH IV (09:32)
[2020-11-06 10:04] LABS: M R Staph aureus DNA By PCR Negative (Negative); Probe Check PASS; Specimen Processing Control PASS
[2020-11-06 10:22] LABS: Pathologist Review Reviewed
[2020-11-06] MEDS: Heparin Injection (Vial) 5,000 UNIT/ML VIAL 5000 UNIT SC ×2 (10:26→21:21)
[2020-11-06] MEDS: Aspirin E.C. 81 MG Tablet PO (10:26)
--- NOTE | 2020-11-06 11:34 | ECHOL_ITS ---
Reason For Study: S/P CABG Procedure This was a limited 2D transthoracic echocardiogram. The exam was of poor technical quality due to respiratory interference.. Pt not responsive to help with positioning and holding breath. Tachycardia. The study was technically difficult. Limited views were obtained. Exam performed portable in ICU/CCU. Left Ventricle Left ventricular systolic function is normal. The estimated ejection fraction is 60 %. Right Ventricle ICD or pacer leads identified within the right ventricle. Normal systolic function. Atria ICD or pacer leads identified within the right atrium. Pericardium/Pleural Small to moderate pericardial effusion. There are no echocardiographic indications of cardiac tamponade. Doppler Measurements & Calculations TR max kristopher: 342.8 cm/sec TR max P.0 mmHg Interpretation Summary The study was technically difficult. Limited views were obtained. Left ventricular systolic function is normal. The estimated ejection fraction is 60 %. Small to moderate pericardial effusion. There are no echocardiographic indications of cardiac tamponade. ICD or pacer leads identified within the right atrium ICD or pacer leads identified within the right ventricle. Compared to the previous transthoracic echocardiogram from 10-24-2020: The pericardial effusion appears to be somewhat more prominent at this time. Ordering Physician: Flor Del Cid Referring Physician: FLOR WILEY Performed By: Zari Cartagena, SAGE, RVT
--- NOTE | 2020-11-06 12:50 | CT_ITS ---
STUDY: CT BRAIN WITHOUT CONTRAST REASON FOR EXAM: Male, 80 years old. ALTERED MENTAL STATUS/SOB/PNEUMONIA RADIATION DOSAGE (If Supplied By Facility): CTDIvol = ( 44.99 ) mGy, DLP = ( 832.67 ) mGycm TECHNIQUE: Transaxial CT imaging of the brain was performed without administration of intravenous contrast material. Individualized dose optimization techniques were used for this CT. COMPARISON: No relevant priors. FINDINGS: Normal soft tissue structures. Normal calvarium. There is mild cerebral atrophy with widening of the extra-axial spaces and ventricular dilatation. There are areas of decreased attenuation within the white matter tracts of the supratentorial brain, consistent with microvascular disease changes. There are small punctate calcifications of the basal ganglia which are seen in the aging brain as a normal variant. Normal brainstem. There is mild cerebellar atrophy. There is no intracranial hemorrhage. There are no findings of an acute ischemic infarction. Atherosclerotic calcification of the cavernous portions of the internal carotid arteries bilaterally. Normal visualized paranasal sinuses. CT/Brain/Head without Contrast IMPRESSION: Chronic involutional changes of the brain. Electronically Signed: Scooby Solorio, at 14:18 EST , Service support ,
--- NOTE | 2020-11-06 12:51 | PCM.HP.ID ---
Problem List (1) Pneumonia Status: Acute Reason for Consult: shock Consulted by: Dr. Del Cid History of Present Illness: The patient is a 80 year old M with h/o CHF, device placement, presented with 3-4 weeks of weakness, confusion, weight loss, and cough. Pt unable to provide history. Found to have JARED on CKD, septic shock, admitted to icu on vanc/zosyn. ROS unobtainable due to mental status. - Medical History Past Medical History (Chronic Problems): Chronic Problems (Last Reviewed 07/04/20 @ 14:[address] Bowen Aranda MD) Atherosclerosis of coronary artery of [place] heart without angina pectoris (Chronic) Biventricular ICD (implantable cardioverter-defibrillator) in place (Chronic 08/02/14) Nonischemic cardiomyopathy (Chronic) Left bundle-branch block (Chronic) Essential (primary) hypertension (Chronic) HLD (hyperlipidemia) (Chronic) Allergies/Adverse Reactions: Allergies No Known Allergies Allergy (Verified 11/05/20 14:48) Home Medications: Ambulatory Orders Medication Instructions Recorded nitroglycerin 0.4 mg sublingual 0.4 mg SUBLINGUAL Q5M PRN 03/28/18 tablet Aspirin [Aspirin EC] 81 mg PO DAILY@0800 11/05/20 Rosuvastatin Calcium 20 mg PO DAILY 11/05/20 megestrol 40 mg tablet 40 mg PO BID tab 11/05/20 - Social History SMOKING STATUS:: Former smoker Vital Signs Temp Pulse Resp BP Pulse Ox 97.3 F L 105 H 21 H 102/55 L 96 11/06/20 10:00 11/06/20 11:45 11/06/20 11:00 11/06/20 11:45 11/06/20 11:00 Oxygen Flow Rate (L/min) 2 Oxygen Delivery Method Room Air Weight: 61.19 kg Body Mass Index (BMI) 20.0 Microbiology Past 72 Hours 11/05/20 16:55 Urine Culture - Preliminary Urine, Clean Catch Culture exhibits no growth. 11/06/20 06:55 Respiratory Panel (PCR) - Final Mucosa - Nose 11/05/20 16:55 Legionella Antigen - Final Urine, Random 11/05/20 16:55 Streptococcus pneumoniae Antigen (M - Final Urine, Random 11/05/20 15:30 SARS-CoV-2 Antigen (Rapid) - Final Mucosa - Nose Laboratory Tests Past 24 Hrs 11/05/20 11/05/20 11/05/20 15:25 15:25 15:25 WBC RBC Hgb Hct MCV MCH MCHC RDW Std Deviation RDW Coeff of Bala Plt Count MPV Neut % (Auto) Absolute Neuts (auto) Absolute Lymphs (auto) Total Counted Neutrophils % (Manual) Band Neutrophils % Lymphocytes % (Manual) Monocytes % (Manual) Eosinophils % (Manual) Metamyelocytes % Myelocytes % Diff Path Review Platelet Estimate Ovalocytes [place] Cells PT 14.8 INR 1.2 APTT 26.7 Sodium Potassium Chloride Carbon Dioxide Anion Gap BUN Creatinine Estim Creat Clear Calc Est GFR (MDRD) Af Amer Est GFR (MDRD) Non-Af BUN/Creatinine Ratio Glucose Lactic Acid 3.6 H* Calcium Total Bilirubin AST ALT Alkaline Phosphatase Troponin I 0.020 Total Protein Albumin Globulin Albumin/Globulin Ratio Urine Color Urine Clarity Urine pH Ur Specific [place] Urine Protein Urine Glucose (UA) Urine Ketones Urine Occult Blood Urine Nitrite Urine Bilirubin Urine Urobilinogen Ur Leukocyte Esterase Urine RBC Urine WBC Ur Squamous Epith Cells Amorphous Sediment Urine Bacteria Urine Mucus COVID-19 ([facility]) MRSA (PCR) 11/05/20 11/05/20 11/05/20 16:55 19:49 23:20 WBC RBC Hgb Hct MCV MCH MCHC RDW Std Deviation RDW Coeff of Bala Plt Count MPV Neut % (Auto) Absolute Neuts (auto) Absolute Lymphs (auto) Total Counted Neutrophils % (Manual) Band Neutrophils % Lymphocytes % (Manual) Monocytes % (Manual) Eosinophils % (Manual) Metamyelocytes % Myelocytes % Diff Path Review Platelet Estimate Ovalocytes Case Cells PT INR APTT Sodium Potassium Chloride Carbon Dioxide Anion Gap BUN Creatinine Estim Creat Clear Calc Est GFR (MDRD) Af Amer Est GFR (MDRD) Non-Af BUN/Creatinine Ratio Glucose Lactic Acid 2.1 H* Calcium Total Bilirubin AST ALT Alkaline Phosphatase Troponin I Total Protein Albumin Globulin Albumin/Globulin Ratio Urine Color Yellow Urine Clarity Clear Urine pH 5.0 Ur Specific [place] 1.015 Urine Protein 100 H Urine Glucose (UA) Normal Urine Ketones Negative Urine Occult Blood 50 H Urine Nitrite Negative Urine Bilirubin Negative Urine Urobilinogen Normal Ur Leukocyte Esterase Negative Urine RBC 0 SEEN Urine WBC 0 SEEN Ur Squamous Epith Cells 0 SEEN Amorphous Sediment 1+ Urine Bacteria 2+ Urine Mucus 0 SEEN COVID-19 ([facility]) Not Detected MRSA (PCR) 11/06/20 11/06/20 11/06/20 03:25 03:25 08:10 WBC 36.6 H* RBC 3.88 L Hgb 11.4 L Hct 34.7 L MCV 89.4 MCH 29.4 MCHC 32.9 RDW Std Deviation 50.4 H RDW Coeff of Bala 15.5 H Plt Count 174 MPV 10.0 Neut % (Auto) Not Reportable Absolute Neuts (auto) 27.8 H Absolute Lymphs (auto) 2.92 Total Counted 100 Neutrophils % (Manual) 70 Band Neutrophils % 6 H Lymphocytes % (Manual) 8 L Monocytes % (Manual) 9 Eosinophils % (Manual) 4 Metamyelocytes % 1 Myelocytes % 2 H Diff Path Review Reviewed Platelet Estimate ADEQUATE Ovalocytes RARE Case Cells RARE PT INR APTT Sodium 131 L Potassium 4.4 Chloride 105 Carbon Dioxide 15.0 L Anion Gap 11 BUN 86 H Creatinine 4.41 H Estim Creat Clear Calc 11.34 Est GFR (MDRD) Af Amer 17 L Est GFR (MDRD) Non-Af 14 L BUN/Creatinine Ratio 19.5 Glucose 116 H Lactic Acid Calcium 7.1 L Total Bilirubin 0.70 AST 64 H ALT 33 Alkaline Phosphatase 654 H Troponin I Total Protein 5.1 L Albumin 1.9 L Globulin 3.2 Albumin/Globulin Ratio 0.6 L Urine Color Urine Clarity Urine pH Ur Specific [place] Urine Protein Urine Glucose (UA) Urine Ketones Urine Occult Blood Urine Nitrite Urine Bilirubin Urine Urobilinogen Ur Leukocyte Esterase Urine RBC Urine WBC Ur Squamous Epith Cells Amorphous Sediment Urine Bacteria Urine Mucus COVID-19 ([facility]) MRSA (PCR) Negative - Other Studies Radiology: [] reviewed Other Studies: [] Route of nutrition/ use of supplements: [] Nutritional Intake: [] IV Site: [] Tillman Catheter: [] - Physical Exam General: Lethargic, Non-Cooperative HEENT: Atraumatic Neck: Supple, No Nodes Lungs: Diminished Cardiovascular: Regular rate, Regular Rhythm Abdomen: Soft, Non Tender, Non-Distended Extremities: No edema Skin: No rashes IV Site: Peripheral, without redness Musculoskeletal: No Tenderness to Palpation of Joints or Extremities - Assessment/Plan Antibiotics: [] Assessment/Plan: [] Active and Suspected Problems (Last Reviewed 07/04/20 @ 14:[address] Bowen Aranda MD) Pneumonia (Acute) Shortness of breath (Acute) Community acquired pneumonia (Acute) septic shock with JARED on CKD, concern for metastatic disease in lungs - covid neg, bcx pending, lactate 3.6, Resp pcr panel neg, UAg neg. On pressor. Cont empiric vanc/zosyn. Will get CT head. Will follow, thank you, d/w Dr. Del Cid last night.
--- NOTE | 2020-11-06 15:44 | PN_ITS ---
Patient Problems: Active and Suspected Problems (Last Reviewed 07/04/20 @ 14:[address] Bowen Aranda MD) Pneumonia (Acute) Shortness of breath (Acute) Community acquired pneumonia (Acute) Subjective: Patient was seen and examined today, his creatinine is improved today, white count is slightly more elevated today, and the CT of his abdomen and chest today showed evidence of metastatic disease in his lungs and liver as well as what was called CHF in the lungs. I did a echo to assess LV function today and it was normal however so I do not think the patient is in CHF. CT of the brain was performed today which showed only involutional changes. - Physical Exam Vitals/I&O's: Vital Signs Temp Pulse Resp BP Pulse Ox 96.7 F L 103 H 21 H 100/63 97 11/06/20 12:00 11/06/20 14:30 11/06/20 14:00 11/06/20 14:30 11/06/20 14:00 Oxygen Flow Rate (L/min) 2 Oxygen Delivery Method Room Air Weight: 61.19 kg Body Mass Index (BMI) 20.0 Intake and Output for Last 24 Hours 11/04/20 11/05/20 11/06/20 23:59 23:59 23:59 Intake Total 4499.70 / 4502.05 2062.71 / 2062.71 Output Total 0 / 0 150 / 150 Balance 4499.70 / 4502.05 1912. / 1912.71 General: Alert, Cooperative, No apparent distress, Well developed, Lethargic HEENT: Atraumatic, PERRLA, EOMI, Normocephalic Oral: Dry Mucosa Neck: Supple, No JVD, Trachea Midline, Thyroid Normal Size and Texture Lungs: Clear to auscultation, Normal air movement, No rhonchi, No wheeze, No rales Cardiovascular: Regular rate, Regular Rhythm, Normal S1, Normal S2, No murmurs, PMI Normal, No rub noted, No Gallop Abdomen: Bowel Sounds Present, Soft, Non Tender, Non-Distended Extremities: No clubbing, No cyanosis, No edema, Capillary Refill Less than 3 Seconds Skin: No rashes, No breakdown Musculoskeletal: No Tenderness to Palpation of Joints or Extremities Neurological: Cranial nerves II-XII grossly intact, Neuro grossly intact, Sensory exam intact to light touch and pain Psych/Mental Status: Flat Affect, - - Patient appears lethargic Microbiology Past 72 Hours 11/05/20 16:55 Urine, Clean Catch Urine Culture - Preliminary Culture exhibits no growth. 11/06/20 06:55 Mucosa - Nose Respiratory Panel (PCR) - Final 11/05/20 16:55 Urine, Random Legionella Antigen - Final 11/05/20 16:55 Urine, Random Streptococcus pneumoniae Antigen (M - Final 11/05/20 15:30 Mucosa - Nose SARS-CoV-2 Antigen (Rapid) - Final Laboratory Results 11/05/20 15:25: Troponin I 0.020 11/05/20 15:25: PT 14.8, INR 1.2, APTT 26.7 11/05/20 15:25: Lactic Acid 3.6 H* 11/05/20 16:55: Urine Color Yellow, Urine Clarity Clear, Urine pH 5.0, Ur Specific [place] 1.015, Urine Protein 100 H, Urine Glucose (UA) Normal, Urine Ketones Negative, Urine Occult Blood 50 H, Urine Nitrite Negative, Urine Bilirubin Negative, Urine Urobilinogen Normal, Ur Leukocyte Esterase Negative, Urine RBC 0 SEEN, Urine WBC 0 SEEN, Ur Squamous Epith Cells 0 SEEN, Amorphous Sediment 1+, Urine Bacteria 2+, Urine Mucus 0 SEEN 11/05/20 19:49: Lactic Acid 2.1 H* 11/05/20 23:20: COVID-19 ([facility]) Not Detected 11/06/20 03:25: WBC 36.6 H*, RBC 3.88 L, Hgb 11.4 L, Hct 34.7 L, MCV 89.4, MCH 29.4, MCHC 32.9, RDW Std Deviation 50.4 H, RDW Coeff of Bala 15.5 H, Plt Count 174, MPV 10.0, Neut % (Auto) Not Reportable, Absolute Neuts (auto) 27.8 H, Absolute Lymphs (auto) 2.92, Total Counted 100, Neutrophils % (Manual) 70, Band Neutrophils % 6 H, Lymphocytes % (Manual) 8 L, Monocytes % (Manual) 9, Eosinophils % (Manual) 4, Metamyelocytes % 1, Myelocytes % 2 H, Diff Path Review Reviewed, Platelet Estimate ADEQUATE, Ovalocytes RARE, Case Cells RARE 11/06/20 03:25: Sodium 131 L, Potassium 4.4, Chloride 105, Carbon Dioxide 15.0 L , Anion Gap 11, BUN 86 H, Creatinine 4.41 H, Estim Creat Clear Calc 11.34, Est GFR (MDRD) Af Amer 17 L, Est GFR (MDRD) Non-Af 14 L, BUN/Creatinine Ratio 19.5, Glucose 116 H, Calcium 7.1 L, Total Bilirubin 0.70, AST 64 H, ALT 33, Alkaline Phosphatase 654 H, Total Protein 5.1 L, Albumin 1.9 L, Globulin 3.2, Albumin/Globulin Ratio 0.6 L 11/06/20 08:10: MRSA (PCR) Negative Current Medications Acetaminophen (Acetaminophen 325 Mg Tablet) 650 mg PO Q6H PRN PRN PRN Reason: Pain Score 1-10/Temp > 100.7 F Albuterol Sulfate (Albuterol 2.5 Mg/3 Ml Vial.Neb.) 2.5 mg INHALATION Q2H PRN PRN PRN Reason: SOB/Wheezing Aspirin (Aspirin E.C. 81 Mg Tablet) 81 mg PO DAILY@0800 [facility] Last Admin: 11/06/20 10:26 Dose: 81 mg Documented by: Atorvastatin Calcium (Atorvastatin Calcium 40 Mg Tablet) 40 mg PO QHS [facility] Heparin Sodium (Porcine) (Heparin Injection (Vial) 5,000 Unit/Ml Vial) 5,000 unit SC Q12 [facility] Last Admin: 11/06/20 10:26 Dose: 5,000 unit Documented by: Sodium Chloride () 1,000 mls @ 150 mls/hr IV .[id number] [facility] Last Admin: 11/06/20 09:32 Dose: 150 mls/hr Documented by: Piperacillin Sod/Tazobactam (Sod 3.375 gm/ Sodium Chloride) 50 mls @ 12.5 mls/hr IV Q12 [facility] Last Infusion: 11/06/20 14:28 Dose: 12.5 mls/hr Documented by: Norepinephrine Bitartrate 8 mg (/ Sodium Chloride) 250 mls @ 9.375 mls/hr CONT INF .[id number] [facility]; Protocol Last Titration: 11/06/20 14:30 Dose: 5 mcg/min, 9.4 mls/hr Documented by: Vancomycin IV Pharmacy to Dose (1 ea/ Sodium Chloride) 500 mls @ 250 mls/hr IV X1 PRN; Protocol PRN Reason: Rx to Dose Nitroglycerin (Nitroglycerin (Inpatient Use) 0.4 Mg Tab.Subl) 0.4 mg SUBLINGUAL Q5M PRN PRN Reason: chest pain Nutritional Formula (Lactose Free) (Ensure Enlive 120 Ml Liquid) 120 ml PO 4X/DAY [facility] Last Admin: 11/06/20 14:27 Dose: Not Given Documented by: Ondansetron HCl (Ondansetron 4 Mg/2 Ml Vial) 4 mg IV Q8H PRN PRN PRN Reason: NAUSEA/VOMITING Sodium Chloride (0.9% Saline Lock 10 Ml Syringe) 10 - 40 ml IV UD PRN PRN Reason: SALINE FLUSH Last Admin: 11/05/20 20:47 Dose: 10 ml Documented by: Medical Necessity - Tobacco Use Smoking Status: Former smoker Tobacco Use: Cigarettes Assessment/Plan All Active Problems (Last Reviewed 07/04/20 @ 14:[address] Bowen Aranda MD) Pneumonia (Acute) Shortness of breath (Acute) Community acquired pneumonia (Acute) History of coronary artery stent placement (Resolved 05/21/09) #1 Septic shock secondary to community-acquired pneumonia-patient will remain on his present antibiotic coverage, infectious diseases saw the patient, we are currently trying to wean the his Levophed downward #2 community-acquired pneumonia with failed outpatient treatment #3 acute renal failure on a backdrop of chronic kidney disease stage III/stage IV-patient's creatinine is improved today, continue fluid administration #4 cachexia-possibly secondary to undiagnosed metastatic cancer-nutritional services is working with the patient #5 history of nonischemic cardiomyopathy-patient's most recent echocardiogram done on 10/24/2020 shows an EF of 55% with mild pulmonary hypertension. #6 mild pulmonary hypertension #[address] abdominal CT indicating possible metastatic cancer to the liver and [id number] will have to be delayed until the patient's kidney functions have improved, he will most probably need a liver biopsy to confirm a diagnosis of cancer, patient is unable to undergo imaging studies with contrast due to his renal failure. I talked at length with his today by phone and let her know about the CT findings. Inpatient E&M: [id number] Subs Hosp L2
--- NOTE | 2020-11-06 19:46 | CT_ITS ---
STUDY: CT CHEST WITHOUT CONTRAST REASON FOR EXAM: Male, 80 years old. COUGH/WEAK/ELEV WBC/SEPTIC. Hx of heart stents, pacemaker and CHF RADIATION DOSAGE (If Supplied By Facility): CTDIvol = ( 11.73 ) mGy, DLP = ( 987.94 ) mGycm TECHNIQUE: Transaxial imaging was performed without the administration of intravenous contrast material. Multiplanar coronal and sagittal images were reformatted. Individualized dose optimization techniques were used for this CT. COMPARISON: None. FINDINGS: A left-sided dual-chamber pacemaker is seen. Small bilateral pleural effusions right greater than left with the bibasilar atelectasis/infiltrates worse on the right side. Diffuse emphysematous changes. Multiple bilateral pulmonary nodules suggestive of metastatic disease. Emphysematous changes. There are calcifications of the coronary arteries. Mild CHF. Normal mediastinum. Normal hilar regions. Normal unenhanced pulmonary arteries. There is atherosclerotic calcification of the aortic arch with tortuosity and elongation of the aortic arch and descending thoracic aorta. There are multi-level degenerative changes of the thoracic spine. Heterogeneous appearance of the liver suggestive of diffuse metastatic disease. CT/Chest without Contrast IMPRESSION: Multiple bilateral pulmonary nodules suggestive of metastatic disease. Bilateral pleural effusions right greater than left with bibasilar atelectasis and/or infiltrate superimposed on emphysematous changes and CHF. Heterogeneous appearance of the liver suggestive of metastatic disease. Electronically Signed: Scooby Solorio, at 10:13 EST , Service support ,
--- NOTE | 2020-11-06 19:46 | CT_ITS ---
STUDY: CT ABDOMEN AND PELVIS WITHOUT CONTRAST REASON FOR EXAM: Male, 80 years old. COUGH/WEAK/ELEV WBC/SEPTIC. Hx of heart stents, pacemaker and CHF RADIATION DOSAGE (If Supplied By Facility): CTDIvol = ( 11.73 ) mGy, DLP = ( 987.94 ) mGycm TECHNIQUE: Transaxial images were obtained from the dome of the diaphragm to the symphysis pubis without oral contrast, and without intravenous contrast. Sagittal and coronal images were reconstructed. Individualized dose optimization techniques were used for this CT. COMPARISON: None. FINDINGS: Noncalcified nodule in the anterior lateral aspect of the right lower lobe measuring 1.2 cm. Small bilateral pleural effusions with bibasilar infiltrates. A dual-chamber pacemaker is seen. Mild hepatomegaly. Heterogeneous appearance of the liver with multiple small hypodense nodules scattered within the right and left lobes. This is suggestive of metastatic disease. Multiple small gallstones are seen in the gallbladder lumen. Normal spleen. Normal pancreas. Normal bilateral adrenal glands. There is a 4.8 cm x 4.6 cm cyst in the upper posterior aspect of the left kidney. Bilateral parapelvic cysts. Nonspecific bilateral perinephric stranding. Normal visualized stomach. Normal small intestine. A large amount of fecal material is seen in the rectosigmoid colon. The appendix is visualized and appears normal. There is diffuse atherosclerotic calcification of the abdominal aorta and its major visceral branches, without a demonstrated aneurysm. 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 Normal urinary bladder. Small amount of free fluid is in the pelvis. Normal abdominal wall. There are diffuse degenerative changes of the visualized lumbar spine. CT/Abdomen/Pelvis without Cont IMPRESSION: Small bilateral pleural effusions right greater than left with bibasilar atelectasis and/or infiltrate. 1.2 cm noncalcified nodule in the peripheral lateral aspect of the right lower lobe as seen on axial image #5. Bilateral parapelvic cysts and dominant cyst in the left kidney. Mild hepatomegaly with diffuse nodular densities in both lobes suggestive of metastatic deposits. Large amount of fecal material is seen in the rectosigmoid colon. Electronically Signed: Scooby Solorio, at 10:10 EST , Service support ,
[2020-11-06] MEDS: Atorvastatin Calcium 40 MG Tablet PO (21:21)
[2020-11-06] MEDS: 0.9% Saline Lock 10 ML Syringe IV (21:21)
[2020-11-07] VITALS (24 sets, daily range): BP systolic 94–119; BP diastolic 56–78; PULSE 95–126; RESP 20–29; TEMP 36.2–36.8; O2SAT 92–100
[2020-11-07] MEDS: Albuterol 2.5 MG/3 ML VIAL.NEB. INHALATION (03:05)
--- NOTE | 2020-11-07 04:10 | PCM.PN.INT ---
Subjective: The patient was seen and examined at the bedside this morning. Events from the last 24 hours have been reviewed. The patient is currently afebrile, hemodynamically stable and maintaining appropriate oxygen saturations on room air. The patient's Levophed has been off now for approximately 2 hours. The patient is currently documented to be overall net +8 L for the hospital admission. CT chest completed yesterday was personally reviewed and did reveal multiple bilateral pulmonary nodules, mostly peripheral in location concerning for metastatic disease along with bilateral pleural effusions, right greater than left. Objective: The patient's most recent lab work, culture data and imaging studies have all been personally reviewed. Coronavirus PCR was negative on November 05. MRSA screen was negative. Respiratory viral panel was negative. Strep and urine Legionella antigens were negative. Blood and urine cultures are pending. General: - - The patient is arousable and will answer some simple questions only to fall back to sleep. HEENT: Atraumatic, PERRLA, Normocephalic Oral: No Gingival or Mucosal Lesions/ Ulcerations Neck: Supple, No Nodes, Trachea Midline Lungs: Diminished, Tachypneic, Wheezes Cardiovascular: Normal S1, Normal S2, Tachycardic Abdomen: Bowel Sounds Present, Soft, Non Tender Extremities: No clubbing, No cyanosis, Edema Skin: No breakdown Musculoskeletal: No Tenderness to Palpation of Joints or Extremities Lymphatic: No Cervical, Supraclavicular, or Inguinal Adenopathy Neurological: Cranial nerves II-XII grossly intact Psych/Mental Status: Flat Affect Vital Signs Temp Pulse Resp BP Pulse Ox 97.1 F L 119 H 26 H 107/64 99 11/06/20 20:00 11/07/20 03:05 11/07/20 03:05 11/06/20 23:00 11/06/20 23:00 Oxygen Flow Rate (L/min) 2 Oxygen Delivery Method Room Air Weight: 134 lb 14.4 oz Body Mass Index (BMI) 20.0 Intake and Output for Last 24 Hours 11/05/20 11/06/20 11/07/20 23:59 23:59 23:59 Intake Total 4499.70 / 4502.05 4149.37 / 4149.37 Output Total 0 / 0 475 / 475 Balance 4499.70 / 4502.05 3674.37 / 3674.37 Labs (Last 48 Hours) 11/05/20 11/05/20 11/05/20 15:25 15:25 15:25 WBC RBC Hgb Hct MCV MCH MCHC RDW Std Deviation RDW Coeff of Bala Plt Count MPV Neut % (Auto) Absolute Neuts (auto) Absolute Lymphs (auto) Total Counted Neutrophils % (Manual) Band Neutrophils % Lymphocytes % (Manual) Monocytes % (Manual) Eosinophils % (Manual) Metamyelocytes % Myelocytes % Diff Path Review Platelet Estimate Ovalocytes [place] Cells PT 14.8 INR 1.2 APTT 26.7 Sodium Potassium Chloride Carbon Dioxide Anion Gap BUN Creatinine Estim Creat Clear Calc Est GFR (MDRD) Af Amer Est GFR (MDRD) Non-Af BUN/Creatinine Ratio Glucose Lactic Acid 3.6 H* Calcium Total Bilirubin AST ALT Alkaline Phosphatase Troponin I 0.020 Total Protein Albumin Globulin Albumin/Globulin Ratio Urine Color Urine Clarity Urine pH Ur Specific [place] Urine Protein Urine Glucose (UA) Urine Ketones Urine Occult Blood Urine Nitrite Urine Bilirubin Urine Urobilinogen Ur Leukocyte Esterase Urine RBC Urine WBC Ur Squamous Epith Cells Amorphous Sediment Urine Bacteria Urine Mucus COVID-19 (ZACH) MRSA (PCR) 11/05/20 11/05/20 11/05/20 16:55 19:49 23:20 WBC RBC Hgb Hct MCV MCH MCHC RDW Std Deviation RDW Coeff of Bala Plt Count MPV Neut % (Auto) Absolute Neuts (auto) Absolute Lymphs (auto) Total Counted Neutrophils % (Manual) Band Neutrophils % Lymphocytes % (Manual) Monocytes % (Manual) Eosinophils % (Manual) Metamyelocytes % Myelocytes % Diff Path Review Platelet Estimate Ovalocytes [place] Cells PT INR APTT Sodium Potassium Chloride Carbon Dioxide Anion Gap BUN Creatinine Estim Creat Clear Calc Est GFR (MDRD) Af Amer Est GFR (MDRD) Non-Af BUN/Creatinine Ratio Glucose Lactic Acid 2.1 H* Calcium Total Bilirubin AST ALT Alkaline Phosphatase Troponin I Total Protein Albumin Globulin Albumin/Globulin Ratio Urine Color Yellow Urine Clarity Clear Urine pH 5.0 Ur Specific [place] 1.015 Urine Protein 100 H Urine Glucose (UA) Normal Urine Ketones Negative Urine Occult Blood 50 H Urine Nitrite Negative Urine Bilirubin Negative Urine Urobilinogen Normal Ur Leukocyte Esterase Negative Urine RBC 0 SEEN Urine WBC 0 SEEN Ur Squamous Epith Cells 0 SEEN Amorphous Sediment 1+ Urine Bacteria 2+ Urine Mucus 0 SEEN COVID-19 ([facility]ACH) Not Detected MRSA (PCR) 11/06/20 11/06/20 11/06/20 03:25 03:25 08:10 WBC 36.6 H* RBC 3.88 L Hgb 11.4 L Hct 34.7 L MCV 89.4 MCH 29.4 MCHC 32.9 RDW Std Deviation 50.4 H RDW Coeff of Bala 15.5 H Plt Count 174 MPV 10.0 Neut % (Auto) Not Reportable Absolute Neuts (auto) 27.8 H Absolute Lymphs (auto) 2.92 Total Counted 100 Neutrophils % (Manual) 70 Band Neutrophils % 6 H Lymphocytes % (Manual) 8 L Monocytes % (Manual) 9 Eosinophils % (Manual) 4 Metamyelocytes % 1 Myelocytes % 2 H Diff Path Review Reviewed Platelet Estimate ADEQUATE Ovalocytes RARE [place] Cells RARE PT INR APTT Sodium 131 L Potassium 4.4 Chloride 105 Carbon Dioxide 15.0 L Anion Gap 11 BUN 86 H Creatinine 4.41 H Estim Creat Clear Calc 11.34 Est GFR (MDRD) Af Amer 17 L Est GFR (MDRD) Non-Af 14 L BUN/Creatinine Ratio 19.5 Glucose 116 H Lactic Acid Calcium 7.1 L Total Bilirubin 0.70 AST 64 H ALT 33 Alkaline Phosphatase 654 H Troponin I Total Protein 5.1 L Albumin 1.9 L Globulin 3.2 Albumin/Globulin Ratio 0.6 L Urine Color Urine Clarity Urine pH Ur Specific [place] Urine Protein Urine Glucose (UA) Urine Ketones Urine Occult Blood Urine Nitrite Urine Bilirubin Urine Urobilinogen Ur Leukocyte Esterase Urine RBC Urine WBC Ur Squamous Epith Cells Amorphous Sediment Urine Bacteria Urine Mucus COVID-19 (ZACH) MRSA (PCR) Negative Microbiology 11/05/20 16:55 Urine, Clean Catch Urine Culture - Preliminary Culture exhibits no growth. 11/06/20 06:55 Mucosa - Nose Respiratory Panel (PCR) - Final 11/05/20 16:55 Urine, Random Legionella Antigen - Final 11/05/20 16:55 Urine, Random Streptococcus pneumoniae Antigen (M - Final 11/05/20 15:30 Mucosa - Nose SARS-CoV-2 Antigen (Rapid) - Final Clinical Impression(s) from Imaging Studies Brain CT 11/06/20 12:50 IMPRESSION: Chronic involutional changes of the brain. Electronically Signed: Scooby Solorio, at 14:18 EST , Service support , Abdomen/Pelvis CT 11/06/20 19:46 IMPRESSION: Small bilateral pleural effusions right greater than left with bibasilar atelectasis and/or infiltrate. 1.2 cm noncalcified nodule in the peripheral lateral aspect of the right lower lobe as seen on axial image #5. Bilateral parapelvic cysts and dominant cyst in the left kidney. Mild hepatomegaly with diffuse nodular densities in both lobes suggestive of metastatic deposits. Large amount of fecal material is seen in the rectosigmoid colon. Electronically Signed: Scooby Manzanaresradha, at 10:10 EST , Service support , Chest CT 11/06/20 19:46 IMPRESSION: Multiple bilateral pulmonary nodules suggestive of metastatic disease. Bilateral pleural effusions right greater than left with bibasilar atelectasis and/or infiltrate superimposed on emphysematous changes and CHF. Heterogeneous appearance of the liver suggestive of metastatic disease. Electronically Signed: Scooby Lyndsey, at 10:13 EST , Service support , Medical Necessity - Tobacco Use Smoking Status: Former smoker Tobacco Use: Cigarettes Assessment/Plan All Active Problems (Last Reviewed 07/04/20 @ 14:[address] Bowen Aranda MD) Pneumonia (Acute) Shortness of breath (Acute) Community acquired pneumonia (Acute) History of coronary artery stent placement (Resolved 05/21/09) RECOMMENDATIONS: 1. Continue broad-spectrum antimicrobials per ID recommendations. 2. Discontinue fluids. 3. Consider ultrasound-guided thoracentesis, based on findings noted on CT chest. 4. If the patient remains admitted to the hospital, consideration can be given to CT-guided lung biopsy next week. 5. Consider a trial of Lasix. IMPRESSIONS: 1. Septic shock The patient was initially admitted to the hospital with worsening cough and radiographic evidence of worsening bilateral pneumonia. The patient initially met severe sepsis criteria, but then developed fluid refractory hypotension necessitating vasopressor support. He was subsequently transferred to the medical intensive care unit. At the present time, the patient has been weaned from vasopressor support. He is currently overall net positive for the hospital admission with wheezing on exam. Therefore, will administer a one-time dose of Lasix. The patient will be continued on broad-spectrum antimicrobials. 2. Bilateral pulmonary nodules/pleural effusions CT chest completed yesterday did reveal bilateral pulmonary nodules and pleural effusions. The findings noted on CT chest are certainly worrisome for metastatic disease. Consideration can be given to obtaining an ultrasound-guided thoracentesis and sending the pleural fluid for cytology. Alternatively, if the patient remains admitted to the hospital, CT-guided lung biopsy could be obtained next week. 3. Acute on chronic kidney disease Likely prerenal in etiology with a component of ischemic ATN in the setting of septic shock. Anticipate improvement with stabilization of hemodynamics. 4. Encephalopathy Potentially metabolic in etiology and related to underlying infection. The patient has apparently been declining from a mental status perspective over the last [address] head revealed only chronic involutional changes of the brain. However, given findings noted on CT chest and abdomen, MRI may be more sensitive for detecting possible metastatic deposits. 5. Heart failure with preserved ejection fraction/pulmonary hypertension Continue current supportive measures as noted above. 6. Advanced age/hyperlipidemia/history of coronary artery disease Complicates care, management, recovery and prognosis. Continue home medications as indicated. CODE status: Discussed CODE status at length including difference between FULL code, DNR-CCA and DNR-CC status. Following discussions about the differences in these status, patient's requested DNR CCA without intubation CODE STATUS. This note was generated with [employer] dictation software. It may contain incorrect words, spelling, and punctuation that were not noted in checking the note before signing. Inpatient E&M: [id number] [facility] Hosp L3
[2020-11-07 04:50] LABS: Hematocrit 35.6 % (40-54); Hemoglobin 11.6 g/dL (13.0-16.5); Mean Corp Hgb Conc 32.6 g/dL (32-36); Mean Corpuscular Hgb 28.9 pg (27.0-32.0); Mean Corpuscular Volume 88.8 fL (80-94); Mean Platelet Vol. 9.6 fl (6.2-12.0); POSITIVE COUNT YES; POSITIVE DIFFERENTIAL YES; POSITIVE MORPHOLOGY YES; Platelet Count 156 K/mm3 (150-450); RBC Distribution Width CV 15.8 % (11.6-14.6); RBC Distribution Width SD 51.8 fl (35.1-43.9); Red Blood Count 4.01 M/mm3 (4.6-6.2); White Blood Count 37.5 K/mm3 (4.4-11.0)
[2020-11-07 04:54] LABS: Differential Indicated MANUAL DIFF
[2020-11-07] MEDS: Furosemide 20 MG/2 ML VIAL IV (05:08)
[2020-11-07 05:20] LABS: Eosinophil 5 % (0-5); Lymphocyte 16 % (19-41); Metamyelocyte 3 % (0-1); Monocyte 7 % (0-10); Neutrophil-Band 1 % (0-5); Neutrophil-Segmented 68 % (47-70); Total Cells Counted 100 (MANUAL DIFF)
[2020-11-07 05:21] LABS: Platelet Estimate ADEQUATE (ADEQ); Red Cell Morphology NORM C+C NORMAL (NORM C&C)
[2020-11-07 05:22] LABS: Absolute Neutrophil Count 25.9 X10^3/uL (2.0-7.7); Anion Gap 12 (5-15); BUN 81 mg/dL (7-18); BUN/Creat Ratio 18.2 RATIO (10-20); Calcium,Total 6.9 mg/dL (8.5-10.1); Chloride 112 mmol/L (98-107); Creatinine, Serum 4.45 mg/dL (0.70-1.30); EST Glomerular Filtration Rate 14 mL/min (>60); Est Glom Filt Rate - Afr Amer 17 mL/min (>60); Estimated Creatinine Clearance 11.46 ml/min; Glucose 110 mg/dL (74-106); Neutrophil # 25.87 X10^3/uL (2.7-7.7); Potassium 4.3 mmol/L (3.5-5.1); Sodium Level 138 mmol/L (136-145)
[2020-11-07 10:56] LABS: Vancomycin, Random Level 16.3 ug/mL (0.0-15.0)
--- NOTE | 2020-11-07 11:41 | PCM.RX.CS ---
Consult Pharmacy has been consulted to manage selected antiobiotic: Vancomycin Type of Consult: Follow-up Suspected Infection: Sepsis Labs: Sodium 138 mmol/L (136-145) 11/07/20 04:30 Potassium 4.3 mmol/L (3.5-5.1) 11/07/20 04:30 Chloride 112 mmol/L (98-107) H 11/07/20 04:30 Carbon Dioxide 14.0 mmol/L (21.0-32.0) L 11/07/20 04:30 Anion Gap 12 (5-15) 11/07/20 04:30 BUN 81 mg/dL (7-18) H 11/07/20 04:30 Creatinine 4.45 mg/dL (0.70-1.30) H 11/07/20 04:30 Est GFR (MDRD) Af Amer 17 mL/min (>60) L 11/07/20 04:30 Est GFR (MDRD) Non-Af 14 mL/min (>60) L 11/07/20 04:30 BUN/Creatinine Ratio 18.2 RATIO (10-20) 11/07/20 04:30 Glucose 110 mg/dL (74-106) H 11/07/20 04:30 Random Vancomycin 16.3 ug/mL (0.0-15.0) H 11/07/20 08:50 Microbiology: Microbiology 11/05/20 16:55 Urine, Clean Catch Urine Culture - Preliminary Culture exhibits no growth. 11/06/20 06:55 Mucosa - Nose Respiratory Panel (PCR) - Final 11/05/20 16:55 Urine, Random Legionella Antigen - Final 11/05/20 16:55 Urine, Random Streptococcus pneumoniae Antigen (M - Final 11/05/20 15:30 Mucosa - Nose SARS-CoV-2 Antigen (Rapid) - Final Goal Trough: 15-20 mcg/mL Pharmacy Plan for Drug Dosing: VANCOMYCIN LEVEL RECEIVED Current Vancomycin Dose: 2000MG X1 11/05 @ 1826 Number of Doses Received: 1 Vancomycin Level: 16.3 MG/DL Hours Since Last Dose: 38.5 Renal Function: SCR 4.45, CRCL 11.46 Renal Function Trend: WORSENING Vancomycin Plan/Comments: GIVE 1000MG X1 AND DRAW ANOTHER LEVEL IN 24 HOURS Pharmacy Service will continue to monitor and adjust dosing as required. Labs to be done on [date and time ordered]: 11/08/20 @ 1200
--- NOTE | 2020-11-07 11:46 | PN_ITS ---
Patient Problems: Active and Suspected Problems (Last Reviewed 07/04/20 @ 14:[address] Bowen Aranda MD) Pneumonia (Acute) Shortness of breath (Acute) Community acquired pneumonia (Acute) Subjective: Patient was seen and examined today, he remains on room air at this time, there has not been a significant change in his creatinine since yesterday, white blood cell count still remains elevated at 37.5. Patient states that he has no questions about his care at this time, his affect is extremely flat. At this time he is on Zosyn and vancomycin for antibiotic coverage. Objective: General: Alert, Cooperative, No apparent distress, Well developed, Lethargic HEENT: Atraumatic, PERRLA, EOMI, Normocephalic Oral: Dry Mucosa Neck: Supple, No JVD, Trachea Midline, Thyroid Normal Size and Texture Lungs: Clear to auscultation, Normal air movement, No rhonchi, No wheeze, No rales Cardiovascular: Regular rate, Regular Rhythm, Normal S1, Normal S2, No murmurs, PMI Normal, No rub noted, No Gallop Abdomen: Bowel Sounds Present, Soft, Non Tender, Non-Distended Extremities: No clubbing, No cyanosis, No edema, Capillary Refill Less than 3 Seconds Skin: No rashes, No breakdown Musculoskeletal: No Tenderness to Palpation of Joints or Extremities Neurological: Cranial nerves II-XII grossly intact, Neuro grossly intact, Sensory exam intact to light touch and pain Psych/Mental Status: Flat Affect, - - Patient appears lethargic - Physical Exam Vitals/I&O's: Vital Signs Temp Pulse Resp BP Pulse Ox 97.8 F 125 H 29 H 100/69 95 11/07/20 04:03 11/07/20 07:00 11/07/20 06:03 11/07/20 06:03 11/07/20 06:58 Oxygen Flow Rate (L/min) 2 Oxygen Delivery Method Room Air Weight: 62.8 kg Body Mass Index (BMI) 20.0 Intake and Output for Last 24 Hours 11/05/20 11/06/20 11/07/20 23:59 23:59 23:59 Intake Total 4499.70 / 4502.05 4149.37 / 4157.77 1016.0 / 1016.0 Output Total 0 / 0 475 / 475 Balance 4499.70 / 4502.05 3674.37 / 3682.77 1016.0 / 1016.0 Microbiology Past 72 Hours 11/05/20 16:55 Urine, Clean Catch Urine Culture - Preliminary Culture exhibits no growth. 11/06/20 06:55 Mucosa - Nose Respiratory Panel (PCR) - Final 11/05/20 16:55 Urine, Random Legionella Antigen - Final 11/05/20 16:55 Urine, Random Streptococcus pneumoniae Antigen (M - Final 11/05/20 15:30 Mucosa - Nose SARS-CoV-2 Antigen (Rapid) - Final Laboratory Results 11/07/20 04:30: WBC 37.5 H*, RBC 4.01 L, Hgb 11.6 L, Hct 35.6 L, MCV 88.8, MCH 28.9, MCHC 32.6, RDW Std Deviation 51.8 H, RDW Coeff of Bala 15.8 H, Plt Count 156, MPV 9.6, Neut % (Auto) Not Reportable, Absolute Neuts (auto) 25.9 H, Absolute Lymphs (auto) 6.00 H, Total Counted 100, Neutrophils % (Manual) 68, Band Neutrophils % 1, Lymphocytes % (Manual) 16 L, Monocytes % (Manual) 7, Eosinophils % (Manual) 5, Metamyelocytes % 3 H, Diff Path Review May foll, Platelet Estimate ADEQUATE, RBC Morphology NORM C+C 11/07/20 04:30: Sodium 138, Potassium 4.3, Chloride 112 H, Carbon Dioxide 14.0 L , Anion Gap 12, BUN 81 H, Creatinine 4.45 H, Estim Creat Clear Calc 11.46, Est GFR (MDRD) Af Amer 17 L, Est GFR (MDRD) Non-Af 14 L, BUN/Creatinine Ratio 18.2, Glucose 110 H, Calcium 6.9 L 11/07/20 08:50: Random Vancomycin 16.3 H Current Medications Acetaminophen (Acetaminophen 325 Mg Tablet) 650 mg PO Q6H PRN PRN PRN Reason: Pain Score 1-10/Temp > 100.7 F Albuterol Sulfate (Albuterol 2.5 Mg/3 Ml Vial.Neb.) 2.5 mg INHALATION Q2H PRN PRN PRN Reason: SOB/Wheezing Last Admin: 11/07/20 03:05 Dose: 2.5 mg Documented by: Aspirin (Aspirin E.C. 81 Mg Tablet) 81 mg PO DAILY@0800 [facility] Last Admin: 11/06/20 10:26 Dose: 81 mg Documented by: Atorvastatin Calcium (Atorvastatin Calcium 40 Mg Tablet) 40 mg PO QHS [facility] Last Admin: 11/06/20 21:21 Dose: 40 mg Documented by: Heparin Sodium (Porcine) (Heparin Injection (Vial) 5,000 Unit/Ml Vial) 5,000 unit SC Q12 [facility] Last Admin: 11/06/20 21:21 Dose: 5,000 unit Documented by: Piperacillin Sod/Tazobactam (Sod 3.375 gm/ Sodium Chloride) 50 mls @ 12.5 mls/hr IV Q12 [facility] Last Infusion: 11/07/20 01:30 Dose: Infused Documented by: Norepinephrine Bitartrate 8 mg (/ Sodium Chloride) 250 mls @ 9.375 mls/hr CONT INF .[id number] [facility]; Protocol Last Titration: 11/07/20 02:00 Dose: 0 mcg/min, 0 mls/hr Documented by: Vancomycin IV Pharmacy to Dose (1 ea/ Sodium Chloride) 500 mls @ 250 mls/hr IV X1 PRN; Protocol PRN Reason: Rx to Dose Vancomycin HCl (Vancomycin) 1,000 mg in 200 mls @ 200 mls/hr IV X1 ONE Stop: 11/07/20 12:59 Nitroglycerin (Nitroglycerin (Inpatient Use) 0.4 Mg Tab.Subl) 0.4 mg SUBLINGUAL Q5M PRN PRN Reason: chest pain Nutritional Formula (Lactose Free) (Ensure Enlive 120 Ml Liquid) 120 ml PO 4X/DAY [facility] Last Admin: 11/06/20 21:32 Dose: 120 ml Documented by: Ondansetron HCl (Ondansetron 4 Mg/2 Ml Vial) 4 mg IV Q8H PRN PRN PRN Reason: NAUSEA/VOMITING Sodium Chloride (0.9% Saline Lock 10 Ml Syringe) 10 - 40 ml IV UD PRN PRN Reason: SALINE FLUSH Last Admin: 11/06/20 21:21 Dose: 20 ml Documented by: Medical Necessity - Tobacco Use Smoking Status: Former smoker Tobacco Use: Cigarettes Assessment/Plan All Active Problems (Last Reviewed 07/04/20 @ 14:[address] Bowen Aranda MD) Pneumonia (Acute) Shortness of breath (Acute) Community acquired pneumonia (Acute) History of coronary artery stent placement (Resolved 05/21/09) #1 Septic shock secondary to community-acquired pneumonia-patient will remain on his present antibiotic coverage, infectious diseases saw the patient, she is not currently on Levophed at this time, I will transfer the patient out to PCU for further care. #2 community-acquired pneumonia with failed outpatient treatment-continue present antibiotics #3 acute renal failure on a backdrop of chronic kidney disease stage III/stage IV-patient's creatinine is unchanged from yesterday, critical care stopped the patient's fluids and gave him a dose of Lasix this morning, patient remains on room air at this time and has no complaints of shortness of breath. #4 cachexia-possibly secondary to undiagnosed metastatic cancer-nutritional services is working with the patient #5 history of nonischemic cardiomyopathy-patient's most recent echocardiogram done on 10/24/2020 shows an EF of 55% with mild pulmonary hypertension, a limited echocardiogram was done yesterday which showed an EF of 60% #6 mild pulmonary hypertension #7 abnormal chest and abdominal CT indicating possible metastatic cancer to the liver and [id number] will have to be delayed until the patient's kidney functions have improved, he will most probably need a liver biopsy to confirm a diagnosis of cancer, patient is unable to undergo imaging studies with contrast due to his renal failure. Patient's CODE STATUS was changed to DNR CC arrest with no intubation. Inpatient E&M: [id number] [facility] Hosp L2
[2020-11-07] MEDS: 0.9% Saline Lock 10 ML Syringe IV ×2 (12:23→20:23)
[2020-11-07] MEDS: Vancomycin IV 1,000 MG/200 ML BAG 200 MG IV (12:42)
[2020-11-07] MEDS: Aspirin E.C. 81 MG Tablet PO (12:46)
[2020-11-07] MEDS: Heparin Injection (Vial) 5,000 UNIT/ML VIAL 5000 UNIT SC ×2 (12:46→20:23)
[2020-11-07] MEDS: Atorvastatin Calcium 40 MG Tablet PO (20:23)
[2020-11-08] VITALS (11 sets, daily range): BP systolic 90–116; BP diastolic 49–63; PULSE 62–117; RESP 20–24; TEMP 36.3–37.2; O2SAT 93–97
[2020-11-08] MEDS: Acetaminophen 325 MG Tablet 650 MG PO (06:25)
[2020-11-08 06:39] LABS: Hematocrit 34.2 % (40-54); Mean Corp Hgb Conc 32.2 g/dL (32-36); Mean Corpuscular Hgb 28.8 pg (27.0-32.0); Mean Corpuscular Volume 89.5 fL (80-94); Mean Platelet Vol. 10.2 fl (6.2-12.0); POSITIVE COUNT YES; POSITIVE DIFFERENTIAL YES; POSITIVE MORPHOLOGY YES; Platelet Count 147 K/mm3 (150-450); RBC Distribution Width CV 16.5 % (11.6-14.6); RBC Distribution Width SD 53.4 fl (35.1-43.9); Red Blood Count 3.82 M/mm3 (4.6-6.2)
[2020-11-08 07:41] LABS: Eosinophil 2 % (0-5); Lymphocyte 10 % (19-41); Metamyelocyte 1 % (0-1); Monocyte 11 % (0-10); Neutrophil-Band 27 % (0-5); Neutrophil-Segmented 48 % (47-70); Promyelocyte 1 (0-0); Total Cells Counted 100 (MANUAL DIFF)
[2020-11-08 07:43] LABS: Differential Indicated MANUAL DIFF
[2020-11-08 07:45] LABS: Platelet Estimate ADEQUATE (ADEQ); Red Cell Morphology NORM C+C NORMAL (NORM C&C)
[2020-11-08 08:06] LABS: ALB/GLOB Ratio 0.6 RATIO (0.9-2.4); AST(SGOT) 69 U/L (15-37); Alanine Aminotransfer ALT/SGPT 35 U/L (16-61); Albumin, Serum 1.8 g/dL (3.2-5.0); Alkaline Phosphatase 617 U/L (45-117); Anion Gap 15 (5-15); BUN 89 mg/dL (7-18); BUN/Creat Ratio 16.7 RATIO (10-20); Calcium,Total 7.3 mg/dL (8.5-10.1); Chloride 111 mmol/L (98-107); Creatinine, Serum 5.33 mg/dL (0.70-1.30); EST Glomerular Filtration Rate 11 mL/min (>60); Est Glom Filt Rate - Afr Amer 13 mL/min (>60); Estimated Creatinine Clearance 9.82 ml/min; Globulin 3.2 g/dL (2.2-4.2); Glucose 133 mg/dL (74-106); Potassium 4.6 mmol/L (3.5-5.1); Sodium Level 139 mmol/L (136-145)
[2020-11-08] MEDS: Heparin Injection (Vial) 5,000 UNIT/ML VIAL 5000 UNIT SC ×2 (11:05→21:00)
[2020-11-08] MEDS: Aspirin E.C. 81 MG Tablet PO (11:06)
[2020-11-08] MEDS: 0.9% Saline Lock 10 ML Syringe IV ×2 (11:06→18:47)
[2020-11-08] MEDS: 0.9% Normal Saline 1,000 ML 999 ML IV (11:17)
[2020-11-08 13:47] LABS: Vancomycin, Random Level 25.7 ug/mL (0.0-15.0)
--- NOTE | 2020-11-08 14:59 | PCM.RX.CS ---
Consult Pharmacy has been consulted to manage selected antiobiotic: Vancomycin Type of Consult: Follow-up Suspected Infection: Sepsis Labs: Sodium 139 mmol/L (136-145) 11/08/20 06:16 Potassium 4.6 mmol/L (3.5-5.1) 11/08/20 06:16 Chloride 111 mmol/L (98-107) H 11/08/20 06:16 Carbon Dioxide 13.0 mmol/L (21.0-32.0) L 11/08/20 06:16 Anion Gap 15 (5-15) 11/08/20 06:16 BUN 89 mg/dL (7-18) H 11/08/20 06:16 Creatinine 5.33 mg/dL (0.70-1.30) H 11/08/20 06:16 Est GFR (MDRD) Af Amer 13 mL/min (>60) L 11/08/20 06:16 Est GFR (MDRD) Non-Af 11 mL/min (>60) L 11/08/20 06:16 BUN/Creatinine Ratio 16.7 RATIO (10-20) 11/08/20 06:16 Glucose 133 mg/dL (74-106) H 11/08/20 06:16 Random Vancomycin 25.7 ug/mL (0.0-15.0) H 11/08/20 12:20 Microbiology: Microbiology 11/05/20 15:45 Blood Culture (Wb) - Anticubital Right Blood Culture - Preliminary No growth in 48 hours. 11/05/20 16:55 Urine, Clean Catch Urine Culture - Final Culture exhibits no growth. 11/05/20 15:25 Blood Culture (Wb) - Anticubital Left Blood Culture - Preliminary No growth in 48 hours. 11/06/20 06:55 Mucosa - Nose Respiratory Panel (PCR) - Final 11/05/20 16:55 Urine, Random Legionella Antigen - Final 11/05/20 16:55 Urine, Random Streptococcus pneumoniae Antigen (M - Final 11/05/20 15:30 Mucosa - Nose SARS-CoV-2 Antigen (Rapid) - Final Goal Trough: 15-20 mcg/mL Pharmacy Plan for Drug Dosing: VANCOMYCIN LEVEL RECEIVED Current Vancomycin Dose: 1000MG X1 Number of Doses Received: 2 Vancomycin Level: 25.7 MG/DL Hours Since Last Dose: 24 Renal Function: SCR 5.33, CRCL 9.8 ML/MIN Renal Function Trend: WORSENING Lab/Micro: BLOOD CX PENDING Vancomycin Plan/Comments: RANDOM LEVEL IS SUPRATHERAPEUTIC AND RENAL FUNCTION HAS WORSENED. WILL NOT GIVE A DOSE TODAY. WILL GET A RANDOM LEVEL IN 24 HOURS. Pharmacy Service will continue to monitor and adjust dosing as required. Labs to be done on [date and time ordered]: 11/09/20 @ 1200
--- NOTE | 2020-11-08 15:52 | PCM.PROGNOTE ---
Patient Problems: Active and Suspected Problems (Last Reviewed 07/04/20 @ 14:[address] Bowen Aranda MD) Pneumonia (Acute) Shortness of breath (Acute) Community acquired pneumonia (Acute) Subjective: Patient was seen and examined today, I talked extensively with his today in person during her visit to his room today. It is my recommendation that the patient undergo a liver biopsy to confirm the diagnosis of metastatic cancer- agrees with this approach. also states that the patient's mental status has declined over the last several months and she did not allow him to drive prior to coming into the hospital, she is wondering whether he could have dementia. Patient does not seem engaged with any conversation and is lethargic and sleepy. His creatinine was more elevated than yesterday, I had nephrology see the patient, I also feel that he does not need IV vancomycin-his blood cultures are negative and his white blood cell count remains elevated. Objective: General: Patient is somnolent and lethargic, he does not engage in spontaneous conversation, he does answer simple questions appropriately HEENT: Atraumatic, PERRLA, EOMI, Normocephalic Oral: Dry Mucosa Neck: Supple, No JVD, Trachea Midline, Thyroid Normal Size and Texture Lungs: Clear to auscultation, Normal air movement, No rhonchi, No wheeze, No rales Cardiovascular: Regular rate, Regular Rhythm, Normal S1, Normal S2, No murmurs, PMI Normal, No rub noted, No Gallop Abdomen: Bowel Sounds Present, Soft, Non Tender, Non-Distended Extremities: No clubbing, No cyanosis, No edema, Capillary Refill Less than 3 Seconds Skin: No rashes, No breakdown Musculoskeletal: No Tenderness to Palpation of Joints or Extremities Neurological: Cranial nerves II-XII grossly intact, Neuro grossly intact, Sensory exam intact to light touch and pain Psych/Mental Status: Flat Affect, - - Patient appears lethargic - Physical Exam Vitals/I&O's: Vital Signs Temp Pulse Resp BP Pulse Ox 97.8 F 108 H 20 H 102/51 L 93 11/08/20 12:00 11/08/20 12:00 11/08/20 12:00 11/08/20 12:00 11/08/20 12:00 Oxygen Flow Rate (L/min) 2 Oxygen Delivery Method Room Air Weight: 62.8 kg Body Mass Index (BMI) 20.0 Intake and Output for Last 24 Hours 11/06/20 11/07/20 11/08/20 23:59 23:59 23:59 Intake Total 4149.37 / 4157.77 1549.27 / 1549.27 1050 / 1050 Output Total 475 / 475 Balance 3674.37 / 3682.77 1549.27 / 1549.27 1050 / 1050 Microbiology Past 72 Hours 11/05/20 15:45 Blood Culture (Wb) - Anticubital Right Blood Culture - Preliminary No growth in 48 hours. 11/05/20 16:55 Urine, Clean Catch Urine Culture - Final Culture exhibits no growth. 11/05/20 15:25 Blood Culture (Wb) - Anticubital Left Blood Culture - Preliminary No growth in 48 hours. 11/06/20 06:55 Mucosa - Nose Respiratory Panel (PCR) - Final 11/05/20 16:55 Urine, Random Legionella Antigen - Final 11/05/20 16:55 Urine, Random Streptococcus pneumoniae Antigen (M - Final 11/05/20 15:30 Mucosa - Nose SARS-CoV-2 Antigen (Rapid) - Final Laboratory Results 11/08/20 06:16: WBC 36.0 H*, RBC 3.82 L, Hgb 11.0 L, Hct 34.2 L, MCV 89.5, MCH 28.8, MCHC 32.2, RDW Std Deviation 53.4 H, RDW Coeff of Bala 16.5 H, Plt Count 147 L, MPV 10.2, Immature Gran % (Auto) SKIN PILER, Neut % (Auto) SKIN PILER, Lymph % (Auto) SKIN PILER, [place] % (Auto) SKIN PILER, Eos % (Auto) SKIN PILER, Baso % (Auto) SKIN PILER, Absolute Neuts (auto) 27.0 H, Absolute Lymphs (auto) 3.60, Total Counted 100, Neutrophils % (Manual) 48, Band Neutrophils % 27 H, Lymphocytes % (Manual) 10 L, Monocytes % (Manual) 11 H, Eosinophils % (Manual) 2, Metamyelocytes % 1, Promyelocytes % 1 H, Nucleated RBC % SKIN PILER, Diff Path Review March, Platelet Estimate ADEQUATE, RBC Morphology NORM C+C 11/08/20 06:16: Sodium 139, Potassium 4.6, Chloride 111 H, Carbon Dioxide 13.0 L, Anion Gap 15, BUN 89 H, Creatinine 5.33 H, Estim Creat Clear Calc 9.82, Est GFR (MDRD) Af Amer 13 L, Est GFR (MDRD) Non-Af 11 L, BUN/Creatinine Ratio 16.7, Glucose 133 H, Calcium 7.3 L, Total Bilirubin 0.80, AST 69 H, ALT 35, Alkaline Phosphatase 617 H, Total Protein 5.0 L, Albumin 1.8 L, Globulin 3.2, Albumin/Globulin Ratio 0.6 L 11/08/20 12:20: Random Vancomycin 25.7 H Current Medications Acetaminophen (Acetaminophen 325 Mg Tablet) 650 mg PO Q6H PRN PRN PRN Reason: Pain Score 1-10/Temp > 100.7 F Last Admin: 11/08/20 06:25 Dose: 650 mg Documented by: Albuterol Sulfate (Albuterol 2.5 Mg/3 Ml Vial.Neb.) 2.5 mg INHALATION Q2H PRN PRN PRN Reason: SOB/Wheezing Last Admin: 11/07/20 03:05 Dose: 2.5 mg Documented by: Aspirin (Aspirin E.C. 81 Mg Tablet) 81 mg PO DAILY@0800 COUNTS INCLUDE 234 BEDS AT THE [facility] Last Admin: 11/08/20 11:06 Dose: 81 mg Documented by: Atorvastatin Calcium (Atorvastatin Calcium 40 Mg Tablet) 40 mg PO QHS COUNTS INCLUDE 234 BEDS AT THE [facility] Last Admin: 11/07/20 20:23 Dose: 40 mg Documented by: Heparin Sodium (Porcine) (Heparin Injection (Vial) 5,000 Unit/Ml Vial) 5,000 unit SC Q12 COUNTS INCLUDE 234 BEDS AT THE [facility] Last Admin: 11/08/20 11:05 Dose: 5,000 unit Documented by: Piperacillin Sod/Tazobactam (Sod 3.375 gm/ Sodium Chloride) 50 mls @ 12.5 mls/hr IV Q12 COUNTS INCLUDE 234 BEDS AT THE [facility] Last Admin: 11/08/20 11:17 Dose: 12.5 mls/hr Documented by: Nutritional Formula (Lactose Free) (Ensure Enlive 120 Ml Liquid) 120 ml PO 4X/DAY COUNTS INCLUDE 234 BEDS AT THE [facility] Last Admin: 11/08/20 11:17 Dose: 120 ml Documented by: Ondansetron HCl (Ondansetron 4 Mg/2 Ml Vial) 4 mg IV Q8H PRN PRN PRN Reason: NAUSEA/VOMITING Sodium Chloride (0.9% Saline Lock 10 Ml Syringe) 10 - 40 ml IV UD PRN PRN Reason: SALINE FLUSH Last Admin: 11/08/20 11:06 Dose: 10 ml Documented by: Medical Necessity - Tobacco Use Smoking Status: Former smoker Tobacco Use: Cigarettes Assessment/Plan All Active Problems (Last Reviewed 07/04/20 @ 14:[address] Bowen Aranda MD) Pneumonia (Acute) Shortness of breath (Acute) Community acquired pneumonia (Acute) History of coronary artery stent placement (Resolved 05/21/09) #1 Septic shock secondary to community-acquired pneumonia-I am beginning to doubt whether the patient has a documented infection at this time, I believe he needs to finish out 7 to 10 days of antibiotic, I talked with infectious diseases on the phone today and they recommended stopping the vancomycin. Patient will remain on Zosyn. Patient is afebrile, white blood cell count remains elevated. #2 community-acquired pneumonia with failed outpatient treatment-patient remains on Zosyn at this time #3 acute renal failure on a backdrop of chronic kidney disease stage III/stage IV-patient's creatinine is increased from yesterday, he does not appear in any respiratory distress, I will have nephrology see the patient for input on his fluid status #4 cachexia-possibly secondary to undiagnosed metastatic cancer-nutritional services is working with the patient #5 history of nonischemic cardiomyopathy-patient's most recent echocardiogram done on 10/24/2020 shows an EF of 55% with mild pulmonary hypertension, a limited echocardiogram was done yesterday which showed an EF of 60% #6 mild pulmonary hypertension #7 abnormal chest and abdominal CT indicating possible metastatic cancer to the liver and [id number] will have to be delayed until the patient's kidney functions have improved, he will most probably need a liver biopsy to confirm a diagnosis of cancer, patient is unable to undergo imaging studies with contrast due to his renal failure. #8 probable dementia-new diagnosis #9 severe leukocytosis-possibly secondary to undiagnosed chronic myelocytic leukemia or as result of metastatic disease (phase reactant), CBC will be repeated tomorrow Inpatient E&M: 68900 Subs Hosp L2
--- NOTE | 2020-11-08 16:33 | CON.PCM_ITS ---
Consultation - Renal PCP/ Referring MD: Requesting physician: [] Primary care physician: Dr. Stanton Leonard, DO - History of Present Illness History of Present Illness: The patient is a 80 year old M PMH of CKD stage 4,CAD, ICD placement, NICMP, HTN and HPLD.Patient was asked to go to [facility] by his PCP due to worsening SOB and cough despite levaquin treatment. Patient has been not eating well and losing weight along with generalized weakness. In ED he was hypotensive along with elevated WBC. Patient was admitted to ICU for septic shock and started on broad spectrum Abx and levophed. CT chest/abdomen/pelvis showed b/l lungs and liver nodules concerning for metastatic disease and left kidney cyst Patient was stabilized and transferred to regular floor today Renal team is consulted for JARED on CKD. Cr was 2.6 mg/dl in October 19 2020. Patient presented with Cr 5.1 mg/dl which improved to 4.5 mg/dl and again increased today to 5.3 mg/dl. BP has been soft and patient is not eating. He was given a bolus of NS earlier today. mtz cath was removed yesterday in ICU No UOP documentation since yesterday but it seems the patient is making urine as per my discussion with the nurse Patient is on room air . good 02 Sat ROS: 12 systems review is negative except legs edema, generalized weakness [] - Allergies Allergies: Allergies No Known Allergies Allergy (Verified 11/05/20 14:48) - Current Medications Current Medications: Current Medications Acetaminophen (Acetaminophen 325 Mg Tablet) 650 mg PO Q6H PRN PRN PRN Reason: Pain Score 1-10/Temp > 100.7 F Last Admin: 11/08/20 06:25 Dose: 650 mg Documented by: Albuterol Sulfate (Albuterol 2.5 Mg/3 Ml Vial.Neb.) 2.5 mg INHALATION Q2H PRN PRN PRN Reason: SOB/Wheezing Last Admin: 11/07/20 03:05 Dose: 2.5 mg Documented by: Aspirin (Aspirin E.C. 81 Mg Tablet) 81 mg PO DAILY@0800 [facility] Last Admin: 11/08/20 11:06 Dose: 81 mg Documented by: Atorvastatin Calcium (Atorvastatin Calcium 40 Mg Tablet) 40 mg PO QHS [facility] Last Admin: 11/07/20 20:23 Dose: 40 mg Documented by: Heparin Sodium (Porcine) (Heparin Injection (Vial) 5,000 Unit/Ml Vial) 5,000 unit SC Q12 [facility] Last Admin: 11/08/20 11:05 Dose: 5,000 unit Documented by: Piperacillin Sod/Tazobactam (Sod 3.375 gm/ Sodium Chloride) 50 mls @ 12.5 mls/hr IV Q12 [facility] Last Admin: 11/08/20 11:17 Dose: 12.5 mls/hr Documented by: Nutritional Formula (Lactose Free) (Ensure Enlive 120 Ml Liquid) 120 ml PO 4X/DAY [facility] Last Admin: 11/08/20 11:17 Dose: 120 ml Documented by: Ondansetron HCl (Ondansetron 4 Mg/2 Ml Vial) 4 mg IV Q8H PRN PRN PRN Reason: NAUSEA/VOMITING Sodium Chloride (0.9% Saline Lock 10 Ml Syringe) 10 - 40 ml IV UD PRN PRN Reason: SALINE FLUSH Last Admin: 11/08/20 11:06 Dose: 10 ml Documented by: - Past Medical History Past Medical History (Chronic Problems): Chronic Problems (Last Reviewed 07/04/20 @ 14:[address] Bowen Aranda MD) Atherosclerosis of coronary artery of [place] heart without angina pectoris (Chronic) Biventricular ICD (implantable cardioverter-defibrillator) in place (Chronic 08/02/14) Nonischemic cardiomyopathy (Chronic) Left bundle-branch block (Chronic) Essential (primary) hypertension (Chronic) HLD (hyperlipidemia) (Chronic) - Past Surgical History Surgical History: - - ICD placement - Social History Smoking Status: Former smoker Alcohol: Rare Drugs: None - Family History Maternal Family History: Family History (Last Reviewed 07/04/20 @ 14:[address] Bowen Aranda MD) Father CAD (coronary artery disease) Hypertension Mother CVA (cerebral vascular accident) Heart disease Myocardial infarction Sister Breast cancer History Items: Heart Disease Paternal Family History: Family History (Last Reviewed 07/04/20 @ 14:[address] Bowen Aranda MD) Father CAD (coronary artery disease) Hypertension Mother CVA (cerebral vascular accident) Heart disease Myocardial infarction Sister Breast cancer History Items: Heart Disease Patient Problems: Active and Suspected Problems (Last Reviewed 07/04/20 @ 14:[address] Bowen Aranda MD) Pneumonia (Acute) Shortness of breath (Acute) Community acquired pneumonia (Acute) - Physical Exam Vitals/I&O's: Vital Signs Temp Pulse Resp BP Pulse Ox 97.8 F 108 H 20 H 102/51 L 93 11/08/20 12:00 11/08/20 12:00 11/08/20 12:00 11/08/20 12:00 11/08/20 12:00 Oxygen Flow Rate (L/min) 2 Oxygen Delivery Method Room Air Weight: 62.8 kg Body Mass Index (BMI) 20.0 Intake and Output for Last 24 Hours 11/06/20 11/07/20 11/08/20 23:59 23:59 23:59 Intake Total 4149.37 / 4157.77 1549.27 / 1549.27 1050 / 1050 Output Total 475 / 475 Balance 3674.37 / 3682.77 1549.27 / 1549.27 1050 / 1050 General: Alert, - - weak looking. cachectic HEENT: Atraumatic Oral: Moist Mucosa Neck: Supple, No JVD Lungs: Clear to auscultation, Normal air movement Cardiovascular: Regular rate, Regular Rhythm, Normal S1 Abdomen: Bowel Sounds Present, Soft, Non Tender Extremities: No clubbing, No cyanosis, Edema - +2 edema of LE Musculoskeletal: No Tenderness to Palpation of Joints or Extremities, Cachexia Neurological: - Psych/Mental Status: - - looks tired. soft talking. Microbiology Past 72 Hours 11/05/20 15:45 Blood Culture (Wb) - Anticubital Right Blood Culture - Preliminary No growth in 48 hours. 11/05/20 16:55 Urine, Clean Catch Urine Culture - Final Culture exhibits no growth. 11/05/20 15:25 Blood Culture (Wb) - Anticubital Left Blood Culture - Preliminary No growth in 48 hours. 11/06/20 06:55 Mucosa - Nose Respiratory Panel (PCR) - Final 11/05/20 16:55 Urine, Random Legionella Antigen - Final 11/05/20 16:55 Urine, Random Streptococcus pneumoniae Antigen (M - Final 11/05/20 15:30 Mucosa - Nose SARS-CoV-2 Antigen (Rapid) - Final Laboratory Results 11/08/20 06:16: WBC 36.0 H*, RBC 3.82 L, Hgb 11.0 L, Hct 34.2 L, MCV 89.5, MCH 28.8, MCHC 32.2, RDW Std Deviation 53.4 H, RDW Coeff of Bala 16.5 H, Plt Count 147 L, MPV 10.2, Immature Gran % (Auto) CAR SHAKEOUT OPERATOR, Neut % (Auto) CAR SHAKEOUT OPERATOR, Lymph % (Auto) CAR SHAKEOUT OPERATOR, [place] % (Auto) CAR SHAKEOUT OPERATOR, Eos % (Auto) CAR SHAKEOUT OPERATOR, Baso % (Auto) CAR SHAKEOUT OPERATOR, Absolute Neuts (auto) 27.0 H, Absolute Lymphs (auto) 3.60, Total Counted 100, Neutrophils % (Manual) 48, Band Neutrophils % 27 H, Lymphocytes % (Manual) 10 L, Monocytes % (Manual) 11 H, Eosinophils % (Manual) 2, Metamyelocytes % 1, Promyelocytes % 1 H, Nucleated RBC % CAR SHAKEOUT OPERATOR, Diff Path Review March, Platelet Estimate ADEQUATE, RBC Morphology NORM C+C 11/08/20 06:16: Sodium 139, Potassium 4.6, Chloride 111 H, Carbon Dioxide 13.0 L , Anion Gap 15, BUN 89 H, Creatinine 5.33 H, Estim Creat Clear Calc 9.82, Est GFR (MDRD) Af Amer 13 L, Est GFR (MDRD) Non-Af 11 L, BUN/Creatinine Ratio 16.7, Glucose 133 H, Calcium 7.3 L, Total Bilirubin 0.80, AST 69 H, ALT 35, Alkaline Phosphatase 617 H, Total Protein 5.0 L, Albumin 1.8 L, Globulin 3.2, Albumin/Globulin Ratio 0.6 L 11/08/20 12:20: Random Vancomycin 25.7 H Current Medications Acetaminophen (Acetaminophen 325 Mg Tablet) 650 mg PO Q6H PRN PRN PRN Reason: Pain Score 1-10/Temp > 100.7 F Last Admin: 11/08/20 06:25 Dose: 650 mg Documented by: Albuterol Sulfate (Albuterol 2.5 Mg/3 Ml Vial.Neb.) 2.5 mg INHALATION Q2H PRN PRN PRN Reason: SOB/Wheezing Last Admin: 11/07/20 03:05 Dose: 2.5 mg Documented by: Aspirin (Aspirin E.C. 81 Mg Tablet) 81 mg PO DAILY@0800 [facility] Last Admin: 11/08/20 11:06 Dose: 81 mg Documented by: Atorvastatin Calcium (Atorvastatin Calcium 40 Mg Tablet) 40 mg PO QHS [facility] Last Admin: 11/07/20 20:23 Dose: 40 mg Documented by: Heparin Sodium (Porcine) (Heparin Injection (Vial) 5,000 Unit/Ml Vial) 5,000 unit SC Q12 [facility] Last Admin: 11/08/20 11:05 Dose: 5,000 unit Documented by: Piperacillin Sod/Tazobactam (Sod 3.375 gm/ Sodium Chloride) 50 mls @ 12.5 mls/hr IV Q12 [facility] Last Admin: 11/08/20 11:17 Dose: 12.5 mls/hr Documented by: Nutritional Formula (Lactose Free) (Ensure Enlive 120 Ml Liquid) 120 ml PO 4X/DAY [facility] Last Admin: 11/08/20 11:17 Dose: 120 ml Documented by: Ondansetron HCl (Ondansetron 4 Mg/2 Ml Vial) 4 mg IV Q8H PRN PRN PRN Reason: NAUSEA/VOMITING Sodium Chloride (0.9% Saline Lock 10 Ml Syringe) 10 - 40 ml IV UD PRN PRN Reason: SALINE FLUSH Last Admin: 11/08/20 11:06 Dose: 10 ml Documented by: Assessment/Plan All Active Problems (Last Reviewed 07/04/20 @ 14:[address] Bowen Aranda MD) Pneumonia (Acute) Shortness of breath (Acute) Community acquired pneumonia (Acute) History of coronary artery stent placement (Resolved 05/21/09) 1-Acute kidney injury on chronic kidney stage stage 4 with baseline Cr seems around 2.6 mg/dl this month UA showed protein 100. JARED is likely prerenal azotemia from hemodynamic instability from sepsis and low BP. r/o acute urinary retention Will start the patient on isotonic NaHC03 drip at 100 cc/hour Will check urine indices Monitor RFP and UOP 2- metabolic acidosis from JARED. patient presented with high LA Will start HC03 drip. Monitor HC03 level 3- Septic shock from pneumonia. better off pressors Vancomycin level is high at 26. vancomycin was stopped On Zosyn 4- b/l lungs and liver metastatic disease. going for Bx Tuesday Thank you for the consult. Renal team will continue to follow Please call if any question at [phone] Joss Valdivia MD
--- NOTE | 2020-11-08 16:40 | NURSING ---
Primary RNJavier notified of bladder scan amount.
[2020-11-08] MEDS: Atorvastatin Calcium 40 MG Tablet PO (21:00)
[2020-11-09] VITALS (10 sets, daily range): BP systolic 96–133; BP diastolic 37–76; PULSE 101–113; RESP 18–22; TEMP 36.4–37; O2SAT 92–95
[2020-11-09] MEDS: Acetaminophen 325 MG Tablet 650 MG PO ×2 (03:21→18:07)
--- NOTE | 2020-11-09 06:15 | PN_ITS ---
Patient Problems: Active and Suspected Problems (Last Reviewed 07/04/20 @ 14:[address] Bowen Aranda MD) Pneumonia (Acute) Shortness of breath (Acute) Community acquired pneumonia (Acute) Subjective: The patient was seen and examined at the bedside this morning. Events from the last 24 hours have been reviewed. The patient is currently afebrile, hemodynamically stable and maintaining appropriate oxygen saturations on room air. The patient seems more alert this morning and denies any pain or shortness of breath. The patient is documented to be overall net positive 11+ liters for the hospital admission. His weight has increased in accordingly. The patient remains on antimicrobials and supplemental fluids per nephrology recommendations. Objective: The patient's most recent lab work, culture data and imaging studies have all been personally reviewed. Surface echocardiogram revealed normal LV systolic function with an ejection fraction of 60%. A small to moderate pericardial effusion was noted without any indication of cardiac tamponade. Infectious work-up has been unrevealing to date. - Physical Exam Vitals/I&O's: Vital Signs Temp Pulse Resp BP Pulse Ox 97.5 F L 106 H 22 H 133/65 H 92 11/09/20 03:15 11/09/20 03:15 11/09/20 03:15 11/09/20 03:15 11/09/20 03:15 Oxygen Flow Rate (L/min) 2 Oxygen Delivery Method Room Air Weight: 141 lb 8.588 oz Body Mass Index (BMI) 20.0 Intake and Output for Last 24 Hours 11/07/20 11/08/20 11/09/20 23:59 23:59 23:59 Intake Total 1549.27 / 1549.27 1838.33 / 1888.33 100 / 100 Balance 1549.27 / 1549.27 1838.33 / 1888.33 100 / 100 General: Alert, Cooperative, No apparent distress, - - A/O x 2 HEENT: Atraumatic, Normocephalic Oral: Dry Mucosa Neck: Supple, No Nodes, Trachea Midline Lungs: Normal air movement, Wheezes Cardiovascular: Normal S1, Normal S2, Tachycardic Abdomen: Bowel Sounds Present, Soft, Non Tender Extremities: No clubbing, No cyanosis, No edema Skin: No breakdown Musculoskeletal: No Tenderness to Palpation of Joints or Extremities Lymphatic: No Cervical, Supraclavicular, or Inguinal Adenopathy Neurological: - - No focal neurological deficits. Psych/Mental Status: Flat Affect Labs (Last 48 Hours) 11/07/20 11/08/20 11/08/20 08:50 06:16 06:16 WBC 36.0 H* RBC 3.82 L Hgb 11.0 L Hct 34.2 L MCV 89.5 MCH 28.8 MCHC 32.2 RDW Std Deviation 53.4 H RDW Coeff of Bala 16.5 H Plt Count 147 L MPV 10.2 Immature Gran % (Auto) [employer] Neut % (Auto) [employer]CTOR Lymph % (Auto) [employer]CTOR Gove % (Auto) [employer] IN[employer]CTOR Eos % (Auto) [employer] IN[employer]CTOR Baso % (Auto) [employer]CTOR Absolute Neuts (auto) 27.0 H Absolute Lymphs (auto) 3.60 Total Counted 100 Neutrophils % (Manual) 48 Band Neutrophils % 27 H Lymphocytes % (Manual) 10 L Monocytes % (Manual) 11 H Eosinophils % (Manual) 2 Metamyelocytes % 1 Promyelocytes % 1 H Nucleated RBC % [employer]CTOR Diff Path Review May foll Platelet Estimate ADEQUATE RBC Morphology NORM C+C Sodium 139 Potassium 4.6 Chloride 111 H Carbon Dioxide 13.0 L Anion Gap 15 BUN 89 H Creatinine 5.33 H Estim Creat Clear Calc 9.82 Est GFR (MDRD) Af Amer 13 L Est GFR (MDRD) Non-Af 11 L BUN/Creatinine Ratio 16.7 Glucose 133 H Calcium 7.3 L Total Bilirubin 0.80 AST 69 H ALT 35 Alkaline Phosphatase 617 H Total Protein 5.0 L Albumin 1.8 L Globulin 3.2 Albumin/Globulin Ratio 0.6 L Random Vancomycin 16.3 H 11/08/20 12:20 WBC RBC Hgb Hct MCV MCH MCHC RDW Std Deviation RDW Coeff of Bala Plt Count MPV Immature Gran % (Auto) Neut % (Auto) Lymph % (Auto) Gove % (Auto) Eos % (Auto) Baso % (Auto) Absolute Neuts (auto) Absolute Lymphs (auto) Total Counted Neutrophils % (Manual) Band Neutrophils % Lymphocytes % (Manual) Monocytes % (Manual) Eosinophils % (Manual) Metamyelocytes % Promyelocytes % Nucleated RBC % Diff Path Review Platelet Estimate RBC Morphology Sodium Potassium Chloride Carbon Dioxide Anion Gap BUN Creatinine Estim Creat Clear Calc Est GFR (MDRD) Af Amer Est GFR (MDRD) Non-Af BUN/Creatinine Ratio Glucose Calcium Total Bilirubin AST ALT Alkaline Phosphatase Total Protein Albumin Globulin Albumin/Globulin Ratio Random Vancomycin 25.7 H Microbiology 11/05/20 15:45 Blood Culture (Wb) - Anticubital Right Blood Culture - Preliminary No growth in 48 hours. 11/05/20 16:55 Urine, Clean Catch Urine Culture - Final Culture exhibits no growth. 11/05/20 15:25 Blood Culture (Wb) - Anticubital Left Blood Culture - Preliminary No growth in 48 hours. Clinical Impression(s) from Imaging Studies Brain CT 11/06/20 12:50 IMPRESSION: Chronic involutional changes of the brain. Electronically Signed: Scooby Solorio, at 14:18 EST , Service support , Abdomen/Pelvis CT 11/06/20 19:46 IMPRESSION: Small bilateral pleural effusions right greater than left with bibasilar atelectasis and/or infiltrate. 1.2 cm noncalcified nodule in the peripheral lateral aspect of the right lower lobe as seen on axial image #5. Bilateral parapelvic cysts and dominant cyst in the left kidney. Mild hepatomegaly with diffuse nodular densities in both lobes suggestive of metastatic deposits. Large amount of fecal material is seen in the rectosigmoid colon. Electronically Signed: Scooby Solorio, at 10:10 EST , Service support , Chest CT 11/06/20 19:46 IMPRESSION: Multiple bilateral pulmonary nodules suggestive of metastatic disease. Bilateral pleural effusions right greater than left with bibasilar atelectasis and/or infiltrate superimposed on emphysematous changes and CHF. Heterogeneous appearance of the liver suggestive of metastatic disease. Electronically Signed: Scooby Solorio, at 10:13 EST , Service support , Current Medications Acetaminophen (Acetaminophen 325 Mg Tablet) 650 mg PO Q6H PRN PRN PRN Reason: Pain Score 1-10/Temp > 100.7 F Last Admin: 11/09/20 03:21 Dose: 650 mg Documented by: Albuterol Sulfate (Albuterol 2.5 Mg/3 Ml Vial.Neb.) 2.5 mg INHALATION Q2H PRN PRN PRN Reason: SOB/Wheezing Last Admin: 11/07/20 03:05 Dose: 2.5 mg Documented by: Aspirin (Aspirin E.C. 81 Mg Tablet) 81 mg PO DAILY@0800 [facility] Last Admin: 11/08/20 11:06 Dose: 81 mg Documented by: Atorvastatin Calcium (Atorvastatin Calcium 40 Mg Tablet) 40 mg PO QHS [facility] Last Admin: 11/08/20 21:00 Dose: 40 mg Documented by: Heparin Sodium (Porcine) (Heparin Injection (Vial) 5,000 Unit/Ml Vial) 5,000 unit SC Q12 [facility] Last Admin: 11/08/20 21:00 Dose: 5,000 unit Documented by: Piperacillin Sod/Tazobactam (Sod 3.375 gm/ Sodium Chloride) 50 mls @ 12.5 mls/hr IV Q12 [facility] Last Infusion: 11/09/20 01:02 Dose: Infused Documented by: Sodium Bicarbonate 150 meq/ (Dextrose) 1,150 mls @ 100 mls/hr IV .[id number] [facility] Last Infusion: 11/09/20 01:01 Dose: 100 mls/hr Documented by: Nutritional Formula (Lactose Free) (Ensure Enlive 120 Ml Liquid) 120 ml PO 4X/DAY [facility] Last Admin: 11/08/20 21:00 Dose: Not Given Documented by: Ondansetron HCl (Ondansetron 4 Mg/2 Ml Vial) 4 mg IV Q8H PRN PRN PRN Reason: NAUSEA/VOMITING Sodium Chloride (0.9% Saline Lock 10 Ml Syringe) 10 - 40 ml IV UD PRN PRN Reason: SALINE FLUSH Last Admin: 11/08/20 18:47 Dose: 10 ml Documented by: Medical Necessity - Tobacco Use Smoking Status: Former smoker Tobacco Use: Cigarettes Assessment/Plan All Active Problems (Last Reviewed 07/04/20 @ 14:[address] Bowen Aranda MD) Pneumonia (Acute) Shortness of breath (Acute) Community acquired pneumonia (Acute) History of coronary artery stent placement (Resolved 05/21/09) RECOMMENDATIONS: 1. Continue antimicrobials per ID recommendations. 2. Fluid management per nephrology recommendations. 3. Consider ultrasound-guided thoracentesis, based on findings noted on CT chest. Pleural fluid could be sent for cytology. 4. If the patient remains admitted to the hospital, consideration can be given to CT-guided lung biopsy next week. IMPRESSIONS: 1. Septic shock Resolved. The patient was initially admitted to the hospital with worsening cough and radiographic evidence of worsening bilateral pneumonia. The patient initially met severe sepsis criteria, but then developed fluid refractory hypotension necessitating vasopressor support. He was subsequently transferred to the medical intensive care unit. At the present time, the patient has been weaned from vasopressor support and remains hemodynamically stable. He is currently overall net positive for the hospital admission. The patient will be continued on antimicrobials per ID recommendations. 2. Bilateral pulmonary nodules/pleural effusions CT chest did reveal bilateral pulmonary nodules and pleural effusions. The findings noted on CT chest are certainly worrisome for metastatic disease. Consideration can be given to obtaining an ultrasound-guided thoracentesis and sending the pleural fluid for cytology. Alternatively, if the patient remains admitted to the hospital, CT-guided lung biopsy could be obtained next week. 3. Acute on chronic kidney disease Likely prerenal in etiology with a component of ischemic ATN in the setting of septic shock. Anticipate improvement with stabilization of hemodynamics. Bicarbonate containing fluids will be continued per nephrology recommendations. 4. Encephalopathy Potentially metabolic in etiology and related to underlying infection. The patient has apparently been declining from a mental status perspective over the last [address] head revealed only chronic involutional changes of the brain. However, given findings noted on CT chest and abdomen, MRI may be more sensitive for detecting possible metastatic deposits. 5. Heart failure with preserved ejection fraction/pulmonary hypertension Continue current supportive measures as noted above. 6. Advanced age/hyperlipidemia/history of coronary artery disease Complicates care, management, recovery and prognosis. Continue home medications as indicated. This note was generated with [employer] dictation software. It may contain incorrect words, spelling, and punctuation that were not noted in checking the note before signing. Inpatient E&M: 39780 Subs Hosp L2
[2020-11-09] MEDS: Heparin Injection (Vial) 5,000 UNIT/ML VIAL 5000 UNIT SC ×2 (09:23→21:19)
[2020-11-09 09:25] LABS: Hematocrit 33.5 % (40-54); Hemoglobin 11.1 g/dL (13.0-16.5); Mean Corp Hgb Conc 33.1 g/dL (32-36); Mean Corpuscular Hgb 29.2 pg (27.0-32.0); Mean Corpuscular Volume 88.2 fL (80-94); Mean Platelet Vol. 10.1 fl (6.2-12.0); POSITIVE COUNT YES; POSITIVE DIFFERENTIAL YES; POSITIVE MORPHOLOGY YES; Platelet Count 167 K/mm3 (150-450); RBC Distribution Width CV 16.6 % (11.6-14.6)
[2020-11-09] MEDS: Aspirin E.C. 81 MG Tablet PO (09:25)
[2020-11-09 09:33] LABS: Differential Indicated MANUAL DIFF
[2020-11-09 09:34] LABS: White Blood Count 38.6 K/mm3 (4.4-11.0)
[2020-11-09 09:40] LABS: Eosinophil 5 % (0-5); Lymphocyte 12 % (19-41); Monocyte 13 % (0-10); Neutrophil-Segmented 55 % (47-70); Total Cells Counted 100 (MANUAL DIFF)
[2020-11-09 09:42] LABS: Absolute Lymphocyte Count 4.64 X10^3/uL (0.83-4.51); Absolute Neutrophil Count 26.7 X10^3/uL (2.0-7.7); Metamyelocyte 1 % (0-1); Neutrophil-Band 14 % (0-5)
[2020-11-09 09:43] LABS: Platelet Estimate ADEQUATE (ADEQ); Red Cell Morphology NORM C+C NORMAL (NORM C&C)
[2020-11-09 09:46] LABS: Anion Gap 14 (5-15); BUN 89 mg/dL (7-18); BUN/Creat Ratio 15.2 RATIO (10-20); Calcium,Total 7.2 mg/dL (8.5-10.1); Chloride 107 mmol/L (98-107); Creatinine, Serum 5.87 mg/dL (0.70-1.30); EST Glomerular Filtration Rate 10 mL/min (>60); Est Glom Filt Rate - Afr Amer 12 mL/min (>60); Estimated Creatinine Clearance 9.11 ml/min; Glucose 142 mg/dL (74-106); Potassium 4.2 mmol/L (3.5-5.1); Sodium Level 138 mmol/L (136-145)
[2020-11-09 12:28] LABS: International Normalized Ratio 1.2; Partial Thromboplast Time 27.8 Seconds (24.1-36.2)
[2020-11-09 12:57] LABS: Vancomycin, Random Level 24.4 ug/mL (0.0-15.0)
--- NOTE | 2020-11-09 15:42 | PCM.PROGNOTE ---
Patient Problems: Active and Suspected Problems (Last Reviewed 07/04/20 @ 14:[address] Bowen Aranda MD) Pneumonia (Acute) Shortness of breath (Acute) Community acquired pneumonia (Acute) Subjective: Patient was seen and examined today, he remains somnolent but will awaken to answer simple questions. Patient's white blood cell count again today is highly elevated, I still think it is very possible that it is not elevated on account of infection. Patient's creatinine has deteriorated today, it is 5.87. Objective: General: Patient is somnolent and lethargic, he does not engage in spontaneous conversation, he does answer simple questions appropriately HEENT: Atraumatic, PERRLA, EOMI, Normocephalic Oral: Dry Mucosa Neck: Supple, No JVD, Trachea Midline, Thyroid Normal Size and Texture Lungs: Clear to auscultation, Normal air movement, No rhonchi, No wheeze, No rales Cardiovascular: Regular rate, Regular Rhythm, Normal S1, Normal S2, No murmurs, PMI Normal, No rub noted, No Gallop Abdomen: Bowel Sounds Present, Soft, Non Tender, Non-Distended Extremities: No clubbing, No cyanosis, No edema, Capillary Refill Less than 3 Seconds Skin: No rashes, No breakdown Musculoskeletal: No Tenderness to Palpation of Joints or Extremities Neurological: Cranial nerves II-XII grossly intact, Neuro grossly intact, Sensory exam intact to light touch and pain Psych/Mental Status: Flat Affect, - - Patient appears lethargic - Physical Exam Vitals/I&O's: Vital Signs Temp Pulse Resp BP Pulse Ox 97.9 F 101 H 18 98/76 94 11/09/20 11:20 11/09/20 15:00 11/09/20 11:20 11/09/20 11:20 11/09/20 11:20 Oxygen Flow Rate (L/min) 2 Oxygen Delivery Method Room Air Weight: 64.2 kg Body Mass Index (BMI) 20.0 Intake and Output for Last 24 Hours 11/07/20 11/08/20 11/09/20 23:59 23:59 23:59 Intake Total 1549.27 / 1549.27 1838.33 / 1888.33 1110.00 / 1110.00 Balance 1549.27 / 1549.27 1838.33 / 1888.33 1110.00 / 1110.00 Microbiology Past 72 Hours 11/05/20 15:45 Blood Culture (Wb) - Anticubital Right Blood Culture - Preliminary No growth in 48 hours. 11/05/20 16:55 Urine, Clean Catch Urine Culture - Final Culture exhibits no growth. 11/05/20 15:25 Blood Culture (Wb) - Anticubital Left Blood Culture - Preliminary No growth in 48 hours. Laboratory Results 11/09/20 09:10: WBC 38.6 H*, RBC 3.80 L, Hgb 11.1 L, Hct 33.5 L, MCV 88.2, MCH 29.2, MCHC 33.1, RDW Std Deviation 53.0 H, RDW Coeff of Bala 16.6 H, Plt Count 167, MPV 10.1, Neut % (Auto) Not Reportable, Absolute Neuts (auto) 26.7 H, Absolute Lymphs (auto) 4.64 H, Total Counted 100, Neutrophils % (Manual) 55, Band Neutrophils % 14 H, Lymphocytes % (Manual) 12 L, Monocytes % (Manual) 13 H, Eosinophils % (Manual) 5, Metamyelocytes % 1, Diff Path Review May , Platelet Estimate ADEQUATE, RBC Morphology NORM C+C 11/09/20 09:10: Sodium 138, Potassium 4.2, Chloride 107, Carbon Dioxide 17.0 L, Anion Gap 14, BUN 89 H, Creatinine 5.87 H, Estim Creat Clear Calc 9.11, Est GFR (MDRD) Af Amer 12 L, Est GFR (MDRD) Non-Af 10 L, BUN/Creatinine Ratio 15.2, Glucose 142 H, Calcium 7.2 L 11/09/20 12:10: Random Vancomycin 24.4 H 11/09/20 12:10: PT 15.0 H, INR 1.2, APTT 27.8 11/09/20 14:50: Ur Random Sodium Pending, Urine Creatinine Pending Current Medications Acetaminophen (Acetaminophen 325 Mg Tablet) 650 mg PO Q6H PRN PRN PRN Reason: Pain Score 1-10/Temp > 100.7 F Last Admin: 11/09/20 03:21 Dose: 650 mg Documented by: Albuterol Sulfate (Albuterol 2.5 Mg/3 Ml Vial.Neb.) 2.5 mg INHALATION Q2H PRN PRN PRN Reason: SOB/Wheezing Last Admin: 11/07/20 03:05 Dose: 2.5 mg Documented by: Aspirin (Aspirin E.C. 81 Mg Tablet) 81 mg PO DAILY@0800 [facility] Last Admin: 11/09/20 09:25 Dose: 81 mg Documented by: Atorvastatin Calcium (Atorvastatin Calcium 40 Mg Tablet) 40 mg PO QHS [facility] Last Admin: 11/08/20 21:00 Dose: 40 mg Documented by: Heparin Sodium (Porcine) (Heparin Injection (Vial) 5,000 Unit/Ml Vial) 5,000 unit SC Q12 [facility] Last Admin: 11/09/20 09:23 Dose: 5,000 unit Documented by: Piperacillin Sod/Tazobactam (Sod 3.375 gm/ Sodium Chloride) 50 mls @ 12.5 mls/hr IV Q12 [facility] Last Infusion: 11/09/20 14:00 Dose: Infused Documented by: Sodium Bicarbonate 150 meq/ (Dextrose) 1,150 mls @ 100 mls/hr IV .[id number] [facility] Last Infusion: 11/09/20 14:00 Dose: 100 mls/hr Documented by: Nutritional Formula (Lactose Free) (Ensure Enlive 120 Ml Liquid) 120 ml PO 4X/DAY [facility] Last Admin: 11/09/20 14:29 Dose: Not Given Documented by: Ondansetron HCl (Ondansetron 4 Mg/2 Ml Vial) 4 mg IV Q8H PRN PRN PRN Reason: NAUSEA/VOMITING Sodium Chloride (0.9% Saline Lock 10 Ml Syringe) 10 - 40 ml IV UD PRN PRN Reason: SALINE FLUSH Last Admin: 11/08/20 18:47 Dose: 10 ml Documented by: Medical Necessity - Tobacco Use Smoking Status: Former smoker Tobacco Use: Cigarettes Assessment/Plan All Active Problems (Last Reviewed 07/04/20 @ 14:[address] Bowen Aranda MD) Pneumonia (Acute) Shortness of breath (Acute) Community acquired pneumonia (Acute) History of coronary artery stent placement (Resolved 05/21/09) #1 Septic shock secondary to community-acquired pneumonia-I am beginning to doubt whether the patient has a documented infection at this time, I believe he needs to finish out 7 to 10 days of antibiotic, infectious diseases will evaluate whether the patient requires any more antibiotic treatment tomorrow when they see him. #2 community-acquired pneumonia with failed outpatient treatment-patient remains on Zosyn at this time #3 acute renal failure on a backdrop of chronic kidney disease stage III/stage IV-patient's creatinine is increased from yesterday, he does not appear in any respiratory distress, nephrology is following the patient #4 cachexia-possibly secondary to undiagnosed metastatic cancer-nutritional services is working with the patient #5 history of nonischemic cardiomyopathy-patient's most recent echocardiogram done on 10/24/2020 shows an EF of 55% with mild pulmonary hypertension, a limited echocardiogram was done yesterday which showed an EF of 60% #6 mild pulmonary hypertension #7 abnormal chest and abdominal CT indicating possible metastatic cancer to the liver and [id number] will have to be delayed until the patient's kidney functions have improved, he will need a liver biopsy to confirm a diagnosis of cancer I have set this up for tomorrow, patient is unable to undergo imaging studies with contrast due to his renal failure. #8 probable dementia-new diagnosis #9 severe leukocytosis-possibly secondary to undiagnosed chronic myelocytic leukemia or as result of metastatic disease (phase reactant), CBC will be repeated tomorrow Inpatient E&M: 03432 Subs Hosp L2
[2020-11-09 15:50] LABS: Urine Sodium 23 mmol/L (Not Establ.)
--- NOTE | 2020-11-09 16:57 | PCM.PN.REN ---
Patient Problems: Active and Suspected Problems (Last Reviewed 07/04/20 @ 14:[address] Bowen Aranda MD) Pneumonia (Acute) Shortness of breath (Acute) Community acquired pneumonia (Acute) Subjective: somnolent . no worsening of breathing. No N/V Poor appetite - Physical Exam Vitals/I&O's: Vital Signs Temp Pulse Resp BP Pulse Ox 97.9 F 105 H 18 96/37 L 95 11/09/20 16:40 11/09/20 16:40 11/09/20 16:40 11/09/20 16:40 11/09/20 16:40 Oxygen Flow Rate (L/min) 2 Oxygen Delivery Method Room Air Weight: 64.2 kg Body Mass Index (BMI) 20.0 Intake and Output for Last 24 Hours 11/07/20 11/08/20 11/09/20 23:59 23:59 23:59 Intake Total 1549.27 / 1549.27 1838.33 / 1888.33 1350.00 / 1350.00 Output Total 250 / 250 Balance 1549.27 / 1549.27 1838.33 / 1888.33 1100.00 / 1100.00 General: Cooperative, - - somnolent. but wakes up and answer some question HEENT: Atraumatic Oral: Moist Mucosa Neck: Supple, No JVD Lungs: Clear to auscultation, Normal air movement, No rhonchi Cardiovascular: Regular rate, Regular Rhythm, Normal S1 Abdomen: Bowel Sounds Present, Soft, Non Tender Extremities: No clubbing, No cyanosis Skin: No rashes Musculoskeletal: Cachexia Neurological: Neuro grossly intact Psych/Mental Status: - - flat mood Microbiology Past 72 Hours 11/05/20 15:45 Blood Culture (Wb) - Anticubital Right Blood Culture - Preliminary No growth in 48 hours. 11/05/20 16:55 Urine, Clean Catch Urine Culture - Final Culture exhibits no growth. 11/05/20 15:25 Blood Culture (Wb) - Anticubital Left Blood Culture - Preliminary No growth in 48 hours. Laboratory Results 11/09/20 09:10: WBC 38.6 H*, RBC 3.80 L, Hgb 11.1 L, Hct 33.5 L, MCV 88.2, MCH 29.2, MCHC 33.1, RDW Std Deviation 53.0 H, RDW Coeff of Bala 16.6 H, Plt Count 167, MPV 10.1, Neut % (Auto) Not Reportable, Absolute Neuts (auto) 26.7 H, Absolute Lymphs (auto) 4.64 H, Total Counted 100, Neutrophils % (Manual) 55, Band Neutrophils % 14 H, Lymphocytes % (Manual) 12 L, Monocytes % (Manual) 13 H, Eosinophils % (Manual) 5, Metamyelocytes % 1, Diff Path Review May , Platelet Estimate ADEQUATE, RBC Morphology NORM C+C 11/09/20 09:10: Sodium 138, Potassium 4.2, Chloride 107, Carbon Dioxide 17.0 L, Anion Gap 14, BUN 89 H, Creatinine 5.87 H, Estim Creat Clear Calc 9.11, Est GFR (MDRD) Af Amer 12 L, Est GFR (MDRD) Non-Af 10 L, BUN/Creatinine Ratio 15.2, Glucose 142 H, Calcium 7.2 L 11/09/20 12:10: Random Vancomycin 24.4 H 11/09/20 12:10: PT 15.0 H, INR 1.2, APTT 27.8 11/09/20 14:50: Ur Random Sodium 23, Urine Creatinine 55.20 Current Medications Acetaminophen (Acetaminophen 325 Mg Tablet) 650 mg PO Q6H PRN PRN PRN Reason: Pain Score 1-10/Temp > 100.7 F Last Admin: 11/09/20 03:21 Dose: 650 mg Documented by: Albuterol Sulfate (Albuterol 2.5 Mg/3 Ml Vial.Neb.) 2.5 mg INHALATION Q2H PRN PRN PRN Reason: SOB/Wheezing Last Admin: 11/07/20 03:05 Dose: 2.5 mg Documented by: Aspirin (Aspirin E.C. 81 Mg Tablet) 81 mg PO DAILY@0800 [facility] Last Admin: 11/09/20 09:25 Dose: 81 mg Documented by: Atorvastatin Calcium (Atorvastatin Calcium 40 Mg Tablet) 40 mg PO QHS [facility] Last Admin: 11/08/20 21:00 Dose: 40 mg Documented by: Heparin Sodium (Porcine) (Heparin Injection (Vial) 5,000 Unit/Ml Vial) 5,000 unit SC Q12 [facility] Last Admin: 11/09/20 09:23 Dose: 5,000 unit Documented by: Piperacillin Sod/Tazobactam (Sod 3.375 gm/ Sodium Chloride) 50 mls @ 12.5 mls/hr IV Q12 [facility] Last Infusion: 11/09/20 14:00 Dose: Infused Documented by: Sodium Bicarbonate 150 meq/ (Dextrose) 1,150 mls @ 100 mls/hr IV .[id number] [facility] Last Infusion: 11/09/20 14:00 Dose: 100 mls/hr Documented by: Nutritional Formula (Lactose Free) (Ensure Enlive 120 Ml Liquid) 120 ml PO 4X/DAY [facility] Last Admin: 11/09/20 14:29 Dose: Not Given Documented by: Ondansetron HCl (Ondansetron 4 Mg/2 Ml Vial) 4 mg IV Q8H PRN PRN PRN Reason: NAUSEA/VOMITING Sodium Chloride (0.9% Saline Lock 10 Ml Syringe) 10 - 40 ml IV UD PRN PRN Reason: SALINE FLUSH Last Admin: 11/08/20 18:47 Dose: 10 ml Documented by: Medical Necessity - Tobacco Use Smoking Status: Former smoker Tobacco Use: Cigarettes Assessment/Plan All Active Problems (Last Reviewed 07/04/20 @ 14:[address] Bowen Aranda MD) Pneumonia (Acute) Shortness of breath (Acute) Community acquired pneumonia (Acute) History of coronary artery stent placement (Resolved 05/21/09) 1-Acute kidney injury on chronic kidney stage stage 4 with baseline Cr seems around 2.6 mg/dl this month UA showed protein 100. JARED is likely prerenal azotemia from hemodynamic instability from sepsis and low BP which likely progressed to ATN FeNa 1.8%. r/o acute urinary retention Cr continue to rise. Cr is up to 5.8 mg/dl. No urgent need for HD. patient is poor candidate to start [employer] if kidney function continues to worsen given poor functioning status and metastatic cancer Continue IVF Monitor RFP and UOP 2- metabolic acidosis from JARED. patient presented with high LA HC03 level with isotonic HC03 drip Will continue the drip 3- Septic shock from pneumonia. better off pressors Vancomycin level is high at 26. vancomycin was stopped On Zosyn 4- b/l lungs and liver metastatic disease. going for Bx Tuesday 5- leukocytosis from # 3 ? On Abx. monitor Renal team will continue to follow Please call if any question at [phone] d/w Dr. Pauline Valdivia MD
[2020-11-09] MEDS: Atorvastatin Calcium 40 MG Tablet PO (21:19)
[2020-11-10] VITALS (14 sets, daily range): BP systolic 83–117; BP diastolic 47–75; PULSE 101–115; RESP 14–23; TEMP 36.5–36.8; O2SAT 92–96; BMI 18.0
--- NOTE | 2020-11-10 | IMM_PTH ---
PATIENT: ERLINDA GUEVARA LOC: [facility] U#:[id number] AGE/SX: 80/M ROOM: [facility] RE11/05/[address]: Dr. Stanton Del Cid DO : 1940 BED: 1 DIS: 11/10/2020 SPEC #: [id number] RECD: 11/11/20 12:27 STATUS: RONALD REQ #: [id number] YULY: 11/10/20 00:[address]: Stanton Del Cid DEPT: IMMUNOHISTOCHEMISTRY RECD BY: Sailaja Mobley ENTERED: 11/11/20 12:32 SP TYPE: IMMUNO OTHR DR: MD Dr. Aubrey Grayson MD Dr. David R Lance, DO Dr. Mark Stutzman, DO Dr. Robert Leininger, MD Tissues: Liver, NOS Procedures: RCC (add) Thyroglobulin (add) NAPSIN A (add) Esau Ret (add) CEA (add) CK14 (add) CK19 (add) CK20 (add) CK5-6 (add) CK7 (add) CK8 (add) PEREZ-2 (add) GAL-3 (add) HBME (add) HEP PAR (add) KI-67 (add) P53 (add) TTF1 (add) Pankeratin (initial) CDX2 (add) CD44 (add) PSAP (add) S-100 (add) PHYSICIAN & INSTITUTION [address] [address] SPECIMEN INFORMATION: Tissue Source: CT-guided liver biopsy Clinical Info: Multiple liver masses, metastatic disease Specimen Number: [id number] CPT code: 41519, 47358 x23 METHODOLOGY: Deparaffinized sections of prefer/formalin-fixed tissue or PAP/DQ stained slides are incubated with monoclonal/polyclonal antibodies/oligonucleotide probes. Localization is made via biotin free immunoperoxidase method. Appropriate controls are performed and reacted as expected. Results on target cell population are indicated in the following table: RESULTS: ANTIBODY / CLONE RESULT AE1-3 (AE1/AE3/PCK26) positive CK7 (OV-TL12/30) positive CK8 (18efmrV52) positive CK20 (KS20.8) negative PEREZ-2 (SP21) positive CDX2 (PGS3469P) negative S-100 (4C4.9) negative HBME1 (HBME-1) positive CK19 (A53-B/A2.26) positive GAL3 (9C4) positive TTF-1 (8G7G3/1) positive Napsin A (Rabbit Polyclonal) positive HepPar (OCh1E5) negative RCC (PN-15) negative PSAP (PASE/4LJ) negative Thyro (2H11+6E1) negative CALRET (polyclonal) positive anti-CD44 (SP37) positive CK5-6 (D5 & 1684) negative CK14 (LL002) negative P40 (BC28) negative CEA (11-7/TF-3HB-1) positive P53 (DO-7) positive, 75% Ki-67 (30-9) positive, 40% These tests were developed and their performance characteristics determined by [facility]. They may not have been cleared or approved by the U.S. Food and Drug Administration. The FDA has determined that such clearance or approval is not necessary. The above immunohistochemical/dualISH markers are ordered and reviewed by the Pathologist. INTERPRETATION: Liver, CT-guided biopsy: Metastatic poorly differentiated non-small cell carcinoma. See comment. AM:benito 11/12/20 Comment: The ICH profile favors a lung primary.
--- NOTE | 2020-11-10 | ASPIGT_PTH ---
PATIENT: ERLINDA GUEVARA LOC: [facility] U#:[id number] AGE/SX: 80/M ROOM: [facility] RE11/05/[address]: Dr. Stanton Del Cid DO : 1940 BED: 1 DIS: 11/10/2020 SPEC #: [id number] RECD: 11/10/20 11:13 STATUS: RONALD REQ #: [id number] YULY: 11/10/20 00:[address]: Stanton Del Cid DEPT: SURGICAL PATHOLOGY RECD BY: Elmer Weaver ENTERED: 11/10/20 11:14 SP TYPE: ASP RAD OTHR DR: MD Dr. Aubrey Grayson MD Dr. David R Lance, DO Dr. Mark Stutzman, DO Dr. Robert Leininger, MD Tissues: Liver, NOS Procedures: FNA Specimen Adequacy Special Stain Group II Surgery Specimen Level IV Imprint (control) HEADER OPERATION: CT-guided liver biopsy PRE-OP DIAGNOSIS: Multiple liver masses; metastatic disease TISSUE SUBMITTED: CT-guided liver biopsy 18-gauge cores MICROSCOPIC DIAGNOSIS CT-guided liver core biopsy: Metastatic poorly differentiated non-small cell carcinoma. See comment. AM:benito 11/12/20 COMMENT The specimen is evaluated at the time of biopsy by Dr. Naylor. Immediate Evaluation: A-E - 5 passes - Positive for malignant cells. Metastatic non-small cell carcinoma. Immunohistochemistry ([id number]) shows strong positivity for TTF-1 and Napsin A favoring a lung primary. Clinical correlation is suggested. This case was discussed with Dr. Del Cid on 11/11/20. MICROSCOPIC DESCRIPTION Slides are reviewed. GROSS DESCRIPTION Received in fixative is one container labeled with the patient's name and designated CT-guided liver biopsy. The specimen consists of multiple elongated fragments of gong tissue. Each fragment measures approximately 2 cm in length and <0.2 cm in diameter. The specimen is totally submitted in one cassette. 16 touch imprints (10 DQ, 6 paps) are prepared at the time of core biopsy. / AM:benito 11/10/20 TC:0 CPT: 87823, 41374, 84391 x4
[2020-11-10] MEDS: Acetaminophen 325 MG Tablet 650 MG PO (03:18)
[2020-11-10 06:13] LABS: Hematocrit 31.9 % (40-54); Hemoglobin 10.8 g/dL (13.0-16.5); Mean Corp Hgb Conc 33.9 g/dL (32-36); Mean Corpuscular Hgb 29.8 pg (27.0-32.0); Mean Corpuscular Volume 88.1 fL (80-94); Mean Platelet Vol. 10.4 fl (6.2-12.0); POSITIVE COUNT YES; POSITIVE DIFFERENTIAL YES; POSITIVE MORPHOLOGY YES; Platelet Count 132 K/mm3 (150-450); RBC Distribution Width CV 17.2 % (11.6-14.6); RBC Distribution Width SD 52.9 fl (35.1-43.9); Red Blood Count 3.62 M/mm3 (4.6-6.2)
[2020-11-10 06:18] LABS: Differential Indicated MANUAL DIFF; White Blood Count 37.6 K/mm3 (4.4-11.0)
[2020-11-10 06:47] LABS: ALB/GLOB Ratio 0.6 RATIO (0.9-2.4); AST(SGOT) 96 U/L (15-37); Alanine Aminotransfer ALT/SGPT 47 U/L (16-61); Albumin, Serum 1.6 g/dL (3.2-5.0); Alkaline Phosphatase 791 U/L (45-117); Anion Gap 15 (5-15); BUN 95 mg/dL (7-18); BUN/Creat Ratio 15.2 RATIO (10-20); Calcium,Total 7.1 mg/dL (8.5-10.1); Chloride 105 mmol/L (98-107); Creatinine, Serum 6.23 mg/dL (0.70-1.30); EST Glomerular Filtration Rate 9 mL/min (>60); Est Glom Filt Rate - Afr Amer 11 mL/min (>60); Globulin 2.7 g/dL (2.2-4.2); Glucose 132 mg/dL (74-106); Magnesium 2.3 mg/dL (1.6-2.6); Potassium 3.9 mmol/L (3.5-5.1); Protein, Total 4.3 g/dL (6.4-8.2); Sodium Level 139 mmol/L (136-145)
[2020-11-10 06:54] LABS: Lymphocyte 17 % (19-41); Metamyelocyte 5 % (0-1); Monocyte 8 % (0-10); Neutrophil-Band 5 % (0-5); Neutrophil-Segmented 65 % (47-70); Total Cells Counted 100 (MANUAL DIFF)
[2020-11-10 06:55] LABS: Absolute Neutrophil Count 26.3 X10^3/uL (2.0-7.7); Platelet Estimate ADEQUATE (ADEQ); Red Cell Morphology NORM C+C NORMAL (NORM C&C)
--- NOTE | 2020-11-10 08:28 | PCM.PN.PUL ---
Patient Problems: Active and Suspected Problems (Last Reviewed 07/04/20 @ 14:[address] Bowen Aranda MD) Pneumonia (Acute) Shortness of breath (Acute) Community acquired pneumonia (Acute) Subjective: The patient was seen and examined at the bedside this morning. Events from the last 24 hours have been reviewed. The patient is currently afebrile, hemodynamically stable and maintaining appropriate oxygen saturations on room air. The patient remains on a continuous sodium bicarbonate infusion and is currently documented to be overall net positive for the hospital admission. White count remains elevated. Creatinine continues to worsen. Objective: The patient's most recent lab work, culture data and imaging studies have all been personally reviewed. Surface echocardiogram revealed normal LV systolic function with an ejection fraction of 60%. A small to moderate pericardial effusion was noted without any indication of cardiac tamponade. Infectious work-up has been unrevealing to date. - Physical Exam Vitals/I&O's: Vital Signs Temp Pulse Resp BP Pulse Ox 98.3 F 110 H 20 H 117/49 L 96 11/10/20 03:20 11/10/20 07:07 11/10/20 03:20 11/10/20 03:20 11/10/20 07:12 Oxygen Flow Rate (L/min) 2 Oxygen Delivery Method Room Air Weight: 115 lb 4.828 oz Body Mass Index (BMI) 20.0 Intake and Output for Last 24 Hours 11/08/20 11/09/20 11/10/20 23:59 23:59 23:59 Intake Total 1838.33 / 1888.33 2095.00 / 2095.00 380 / 380 Output Total 250 / 250 Balance 1838.33 / 1888.33 1845.00 / 1845.00 380 / 380 General: Alert, Cooperative, Lethargic HEENT: Atraumatic, Normocephalic Oral: Dry Mucosa Neck: Supple, No Nodes, Trachea Midline Lungs: Diminished, Wheezes Cardiovascular: Normal S1, Normal S2, Tachycardic Abdomen: Bowel Sounds Present, Soft, Non Tender Extremities: No clubbing, No cyanosis, No edema Skin: No breakdown Musculoskeletal: No Tenderness to Palpation of Joints or Extremities Lymphatic: No Cervical, Supraclavicular, or Inguinal Adenopathy Neurological: Cranial nerves II-XII grossly intact Psych/Mental Status: Flat Affect Labs (Last 48 Hours) 11/08/20 11/09/20 11/09/20 12:20 09:10 09:10 WBC 38.6 H* RBC 3.80 L Hgb 11.1 L Hct 33.5 L MCV 88.2 MCH 29.2 MCHC 33.1 RDW Std Deviation 53.0 H RDW Coeff of Bala 16.6 H Plt Count 167 MPV 10.1 Neut % (Auto) Not Reportable Absolute Neuts (auto) 26.7 H Absolute Lymphs (auto) 4.64 H Total Counted 100 Neutrophils % (Manual) 55 Band Neutrophils % 14 H Lymphocytes % (Manual) 12 L Monocytes % (Manual) 13 H Eosinophils % (Manual) 5 Metamyelocytes % 1 Diff Path Review May foll Platelet Estimate ADEQUATE RBC Morphology NORM C+C PT INR APTT Sodium 138 Potassium 4.2 Chloride 107 Carbon Dioxide 17.0 L Anion Gap 14 BUN 89 H Creatinine 5.87 H Estim Creat Clear Calc 9.11 Est GFR (MDRD) Af Amer 12 L Est GFR (MDRD) Non-Af 10 L BUN/Creatinine Ratio 15.2 Glucose 142 H Calcium 7.2 L Magnesium Total Bilirubin AST ALT Alkaline Phosphatase Total Protein Albumin Globulin Albumin/Globulin Ratio Ur Random Sodium Urine Creatinine Random Vancomycin 25.7 H 11/09/20 11/09/20 11/09/20 12:10 12:10 14:50 WBC RBC Hgb Hct MCV MCH MCHC RDW Std Deviation RDW Coeff of Bala Plt Count MPV Neut % (Auto) Absolute Neuts (auto) Absolute Lymphs (auto) Total Counted Neutrophils % (Manual) Band Neutrophils % Lymphocytes % (Manual) Monocytes % (Manual) Eosinophils % (Manual) Metamyelocytes % Diff Path Review Platelet Estimate RBC Morphology PT 15.0 H INR 1.2 APTT 27.8 Sodium Potassium Chloride Carbon Dioxide Anion Gap BUN Creatinine Estim Creat Clear Calc Est GFR (MDRD) Af Amer Est GFR (MDRD) Non-Af BUN/Creatinine Ratio Glucose Calcium Magnesium Total Bilirubin AST ALT Alkaline Phosphatase Total Protein Albumin Globulin Albumin/Globulin Ratio Ur Random Sodium 23 Urine Creatinine 55.20 Random Vancomycin 24.4 H 11/10/20 11/10/20 05:35 05:35 WBC 37.6 H* RBC 3.62 L Hgb 10.8 L Hct 31.9 L MCV 88.1 MCH 29.8 MCHC 33.9 RDW Std Deviation 52.9 H RDW Coeff of Bala 17.2 H Plt Count 132 L MPV 10.4 Neut % (Auto) Not Reportable Absolute Neuts (auto) 26.3 H Absolute Lymphs (auto) 6.40 H Total Counted 100 Neutrophils % (Manual) 65 Band Neutrophils % 5 Lymphocytes % (Manual) 17 L Monocytes % (Manual) 8 Eosinophils % (Manual) Metamyelocytes % 5 H Diff Path Review May foll Platelet Estimate ADEQUATE RBC Morphology NORM C+C PT INR APTT Sodium 139 Potassium 3.9 Chloride 105 Carbon Dioxide 19.0 L Anion Gap 15 BUN 95 H Creatinine 6.23 H Estim Creat Clear Calc 7.00 Est GFR (MDRD) Af Amer 11 L Est GFR (MDRD) Non-Af 9 L BUN/Creatinine Ratio 15.2 Glucose 132 H Calcium 7.1 L Magnesium 2.3 Total Bilirubin 0.80 AST 96 H ALT 47 Alkaline Phosphatase 791 H Total Protein 4.3 L Albumin 1.6 L Globulin 2.7 Albumin/Globulin Ratio 0.6 L Ur Random Sodium Urine Creatinine Random Vancomycin Microbiology 11/05/20 15:45 Blood Culture (Wb) - Anticubital Right Blood Culture - Preliminary No growth in 48 hours. 11/05/20 16:55 Urine, Clean Catch Urine Culture - Final Culture exhibits no growth. Clinical Impression(s) from Imaging Studies Brain CT 11/06/20 12:50 IMPRESSION: Chronic involutional changes of the brain. Electronically Signed: Scooby Solorio, at 14:18 EST , Service support , Abdomen/Pelvis CT 11/06/20 19:46 IMPRESSION: Small bilateral pleural effusions right greater than left with bibasilar atelectasis and/or infiltrate. 1.2 cm noncalcified nodule in the peripheral lateral aspect of the right lower lobe as seen on axial image #5. Bilateral parapelvic cysts and dominant cyst in the left kidney. Mild hepatomegaly with diffuse nodular densities in both lobes suggestive of metastatic deposits. Large amount of fecal material is seen in the rectosigmoid colon. Electronically Signed: Scooby Solorio, at 10:10 EST , Service support , Chest CT 11/06/20 19:46 IMPRESSION: Multiple bilateral pulmonary nodules suggestive of metastatic disease. Bilateral pleural effusions right greater than left with bibasilar atelectasis and/or infiltrate superimposed on emphysematous changes and CHF. Heterogeneous appearance of the liver suggestive of metastatic disease. Electronically Signed: Scooby Solorio, at 10:13 EST , Service support , Current Medications Acetaminophen (Acetaminophen 325 Mg Tablet) 650 mg PO Q6H PRN PRN PRN Reason: Pain Score 1-10/Temp > 100.7 F Last Admin: 11/10/20 03:18 Dose: 650 mg Documented by: Albuterol Sulfate (Albuterol 2.5 Mg/3 Ml Vial.Neb.) 2.5 mg INHALATION Q2H PRN PRN PRN Reason: SOB/Wheezing Last Admin: 11/07/20 03:05 Dose: 2.5 mg Documented by: Aspirin (Aspirin E.C. 81 Mg Tablet) 81 mg PO DAILY@0800 [facility] Last Admin: 11/09/20 09:25 Dose: 81 mg Documented by: Atorvastatin Calcium (Atorvastatin Calcium 40 Mg Tablet) 40 mg PO QHS [facility] Last Admin: 11/09/20 21:19 Dose: 40 mg Documented by: Heparin Sodium (Porcine) (Heparin Injection (Vial) 5,000 Unit/Ml Vial) 5,000 unit SC Q12 [facility] Last Admin: 11/10/20 07:41 Dose: Not Given Documented by: Piperacillin Sod/Tazobactam (Sod 3.375 gm/ Sodium Chloride) 50 mls @ 12.5 mls/hr IV Q12 [facility] Last Infusion: 11/10/20 01:44 Dose: Infused Documented by: Sodium Bicarbonate 150 meq/ (Dextrose) 1,150 mls @ 100 mls/hr IV .[id number] [facility] Last Admin: 11/10/20 05:20 Dose: Not Given Documented by: Nutritional Formula (Lactose Free) (Ensure Enlive 120 Ml Liquid) 120 ml PO 4X/DAY [facility] Last Admin: 11/09/20 21:18 Dose: Not Given Documented by: Ondansetron HCl (Ondansetron 4 Mg/2 Ml Vial) 4 mg IV Q8H PRN PRN PRN Reason: NAUSEA/VOMITING Sodium Chloride (0.9% Saline Lock 10 Ml Syringe) 10 - 40 ml IV UD PRN PRN Reason: SALINE FLUSH Last Admin: 11/08/20 18:47 Dose: 10 ml Documented by: Medical Necessity - Tobacco Use Smoking Status: Former smoker Tobacco Use: Cigarettes Assessment/Plan All Active Problems (Last Reviewed 07/04/20 @ 14:[address] Bowen Aranda MD) Pneumonia (Acute) Shortness of breath (Acute) Community acquired pneumonia (Acute) History of coronary artery stent placement (Resolved 05/21/09) RECOMMENDATIONS: 1. Continue antimicrobials per ID recommendations. 2. Fluid management per nephrology recommendations. 3. Consider ultrasound-guided thoracentesis, based on findings noted on CT chest. Pleural fluid could be sent for cytology. 4. If the patient remains admitted to the hospital, consideration can be given to CT-guided lung biopsy next week. IMPRESSIONS: 1. Septic shock Resolved. The patient was initially admitted to the hospital with worsening cough and radiographic evidence of worsening bilateral pneumonia. The patient initially met severe sepsis criteria, but then developed fluid refractory hypotension necessitating vasopressor support. He was subsequently transferred to the medical intensive care unit. At the present time, the patient has been weaned from vasopressor support and remains hemodynamically stable. He is currently overall net positive for the hospital admission. The patient will be continued on antimicrobials per ID recommendations. 2. Bilateral pulmonary nodules/pleural effusions CT chest did reveal bilateral pulmonary nodules and pleural effusions. The findings noted on CT chest are certainly worrisome for metastatic disease. Consideration can be given to obtaining an ultrasound-guided thoracentesis and sending the pleural fluid for cytology. Alternatively, if the patient remains admitted to the hospital, CT-guided lung biopsy could be obtained next week. 3. Acute on chronic kidney disease Likely prerenal in etiology with a component of ischemic ATN in the setting of septic shock. Anticipate improvement with stabilization of hemodynamics. Bicarbonate containing fluids will be continued per nephrology recommendations. 4. Encephalopathy Potentially metabolic in etiology and related to underlying infection. The patient has apparently been declining from a mental status perspective over the last [address] head revealed only chronic involutional changes of the brain. However, given findings noted on CT chest and abdomen, MRI may be more sensitive for detecting possible metastatic deposits. 5. Heart failure with preserved ejection fraction/pulmonary hypertension Continue current supportive measures as noted above. 6. Advanced age/hyperlipidemia/history of coronary artery disease Complicates care, management, recovery and prognosis. Continue home medications as indicated. This note was generated with [employer] dictation software. It may contain incorrect words, spelling, and punctuation that were not noted in checking the note before signing. Inpatient E&M: 08748 Subs Hosp L2
[2020-11-10] MEDS: Albuterol 2.5 MG/3 ML VIAL.NEB. INHALATION (09:02)
--- NOTE | 2020-11-10 09:04 | CT_ITS ---
PROCEDURE: CT-GUIDED CORE BIOPSY OF A LIVER MASS Individualized dose optimization techniques were used for this CT. INDICATION: Male, 80 years old. Multiple liver masses suggesting metastatic disease CT guidance CONSENT: The risks, benefits and alternatives to the procedure were explained to the patient, and the patient agreed to the procedure and signed the consent. SEDATION: Intermittent the intravenous and demonstration of Versed and fentanyl by nursing staff under continuous cardiopulmonary monitoring. Sedation less than approximately 30 minutes STERILE BARRIER TECHNIQUE: The following sterile barrier precautions were used during the procedure: hand hygiene; use of 2% chlorhexidine aseptic; use of a cap, mask, sterile gown, sterile gloves, sterile full body drape, and a large sterile sheet. PROCEDURE/TECHNIQUE: The risks, benefits, and alternatives to the procedure were explained to patient, and the patient agreed to the procedure and signed a consent form for the procedure. A timeout was performed to confirm the patient''s identity, the type of procedure, to be performed and the site of entry. Patient was positioned supine on the CT scan table. Under CT guidance using sterile technique and after infiltration of the skin and subcutaneous soft tissues with 40 mL of lidocaine 1% an 18-gauge core biopsy was introduced in the right lobe of liver mass previously described. 7 core samples were obtained and were placed with in formalin solution and sent to the lab for evaluation. Touch prep slides were examined by the pathologist at the procedure. FINDINGS: Successful CT-guided core biopsy of liver mass in the right lobe of the liver. CT/Biopsy/Inj or Needle Placement IMPRESSION: Successful CT-guided core biopsy of liver mass in the right lobe of the liver. Electronically Signed: Greer Joe, at 13:24 EST Tel , Service support ,
[2020-11-10] MEDS: Midazolam 2 MG/2 ML Syringe IV (09:49)
[2020-11-10] MEDS: fentaNYL 100 MCG/2 ML Ampul IV (09:49)
[2020-11-10] MEDS: Lidocaine 2% (20 ml mdv) 20 ML Vial INFILT (09:50)
--- NOTE | 2020-11-10 10:42 | CASEMGMT ---
Physician spoke with Dr Alonso with Hospice about patient going to their inpatient unit. He said Dr Alonso said they could take him. Dr Del Cid called patient's and spoke to her about this and she was in agreement. HUNTER faxed information to [facility]. Tisha WOODS MSW
--- NOTE | 2020-11-10 11:26 | PCM.NTREPORT ---
Nutrition Therapy Report - History Nutrition Services has been consulted to:: Manage nutrient details of diet order Current diet / nutrition support order:: NPO; previously Regular mech/thin liquids - Anthropometric Measurements Height:: 5 ft 7 in Weight:: 52.3 kg Body Mass Index (BMI):: 18.0 - Relevant Labs Relevant Labs:: WBC 37.6 K/mm3 (4.4-11.0) H* 11/10/20 05:35 RBC 3.62 M/mm3 (4.6-6.2) L 11/10/20 05:35 Hgb 10.8 g/dL (13.0-16.5) L 11/10/20 05:35 Hct 31.9 % (40-54) L 11/10/20 05:35 RDW Std Deviation 52.9 fl (35.1-43.9) H 11/10/20 05:35 RDW Coeff of Bala 17.2 % (11.6-14.6) H 11/10/20 05:35 Plt Count 132 K/mm3 (150-450) L 11/10/20 05:35 Absolute Neuts (auto) 26.3 X10^3/uL (2.0-7.7) H 11/10/20 05:35 Absolute Lymphs (auto) 6.40 X10^3/uL (0.83-4.51) H 11/10/20 05:35 Band Neutrophils % 14 % (0-5) H 11/09/20 09:10 Lymphocytes % (Manual) 17 % (19-41) L 11/10/20 05:35 Monocytes % (Manual) 13 % (0-10) H 11/09/20 09:10 Metamyelocytes % 5 % (0-1) H 11/10/20 05:35 Myelocytes % 2 (0-0) H 11/06/20 03:25 Promyelocytes % 1 (0-0) H 11/08/20 06:16 PT 15.0 SECONDS (11.7-14.9) H 11/09/20 12:10 Sodium 131 mmol/L (136-145) L 11/06/20 03:25 Chloride 111 mmol/L (98-107) H 11/08/20 06:16 Carbon Dioxide 19.0 mmol/L (21.0-32.0) L 11/10/20 05:35 BUN 95 mg/dL (7-18) H 11/10/20 05:35 Creatinine 6.23 mg/dL (0.70-1.30) H 11/10/20 05:35 Est GFR (MDRD) Af Amer 11 mL/min (>60) L 11/10/20 05:35 Est GFR (MDRD) Non-Af 9 mL/min (>60) L 11/10/20 05:35 Glucose 132 mg/dL (74-106) H 11/10/20 05:35 Lactic Acid 2.1 mmol/L (0.4-1.9) H* 11/05/20 19:49 Calcium 7.1 mg/dL (8.5-10.1) L 11/10/20 05:35 AST 96 U/L (15-37) H 11/10/20 05:35 Alkaline Phosphatase 791 U/L (45-117) H 11/10/20 05:35 Total Protein 4.3 g/dL (6.4-8.2) L 11/10/20 05:35 Albumin 1.6 g/dL (3.2-5.0) L 11/10/20 05:35 Albumin/Globulin Ratio 0.6 RATIO (0.9-2.4) L 11/10/20 05:35 - Assessment Food / Nutrition-Related History:: Pt with cachexia-possibly secondary to undiagnosed metastatic cancer and continues with overall poor PO/farzad at meals including refusal of meals and ONS as well. Calculated~13% wt loss since admit on 11/05 which is significant for malnutrition. Admitted with septic shock/CAP. Pt has been somnolent and continues to refuse meals and lose wt in adddition to muscle/fat wasting which meets criteria for severe malnutrition. 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 Evidence of Malnutrition Exists:: Yes Severe PCM:: Chronic Illness - Nutrition Intervention Nutrition Prescription:: Estimated nutrition needs~7422-1873 kcal and ~75-85 gm protein/day - Food / Nutrient Delivery Interventions Summary of nutrition intervention:: Resume liberalized regular diet with texture/consistency as per MECHANICAL ESTIMATOR; will continue 120ml ensure enlive 4 times per day w/ medpass and magic cup/ensure pudding as tolerated TID w/ meals. Consider TF support as suspect PO, wt and nutrition status will likely continue to decline. Nutrition education provided?: No - MNT Monitoring Further MNT monitoring and evaluation required?: Yes MNT Follow-up in:: 3-5 days
[2020-11-10 12:05] LABS: Pathologist Review Reviewed
[2020-11-10 12:11] LABS: Pathologist Review Reviewed
[2020-11-10 12:26] LABS: Pathologist Review Reviewed
[2020-11-10 12:29] LABS: Pathologist Review Reviewed
--- NOTE | 2020-11-10 13:29 | CASEMGMT ---
Addendum entered by Tisha Mayo 11/10/20 13:43: SW let patient's know he will get picked up between 330 and 4p. SW also notified RN and physician. Tisha WOODS [employer] Original Note: SW spoke with Eren from Hospice. She spoke with family and they will be signing papers at 2p today. She said their mobile unit could pick patient up between 3 and 330. SW notified supervisor in charge. Hospice was going to notify patient's . SW will notify RN. SW will fax d/c information, med list, and DNR to Hospice. Tisha WOODS [employer]
--- NOTE | 2020-11-10 14:00 | NURSING ---
Called report to Rylee @ Hospice, transport to be here @ [phone]
--- NOTE | 2020-11-10 15:30 | DS.PCM_ITS ---
Discharge Date and Diagnosis - Problem List Patient Problems: Active and Suspected Problems (Last Reviewed 07/04/20 @ 14:[address] Bowen Aranda MD) Pneumonia (Acute) Shortness of breath (Acute) Community acquired pneumonia (Acute) Date of Admission: 11/05/20 Date of Discharge: 11/10/20 - Primary Discharge Diagnosis Acute Problems: Active Problems (Last Reviewed 07/04/20 @ 14:[address] 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 Limited views were obtained. Left ventricular systolic function is normal. The estimated ejection fraction is 60 %. Small to moderate pericardial effusion. There are no echocardiographic indications of cardiac tamponade. ICD or pacer leads identified within the right atrium ICD or pacer leads identified within the right ventricle. Compared to the previous transthoracic echocardiogram from 10-24-2020: The pericardial effusion appears to be somewhat more prominent at this time. CT/Brain/Head without Contrast IMPRESSION: Chronic involutional changes of the brain. CT/Abdomen/Pelvis without Cont IMPRESSION: Small bilateral pleural effusions right greater than left with bibasilar atelectasis and/or infiltrate. 1.2 cm noncalcified nodule in the peripheral lateral aspect of the right lower lobe as seen on axial image #5. Bilateral parapelvic cysts and dominant cyst in the left kidney. Mild hepatomegaly with diffuse nodular densities in both lobes suggestive of metastatic deposits. Large amount of fecal material is seen in the rectosigmoid colon. CT/Chest without Contrast IMPRESSION: Multiple bilateral pulmonary nodules suggestive of metastatic disease. Bilateral pleural effusions right greater than left with bibasilar atelectasis and/or infiltrate superimposed on emphysematous changes and CHF. Heterogeneous appearance of the liver suggestive of metastatic disease. Consults: Wild - critical care Shea - nephrology Behzad - infectious disease Lyndsey - [facility] Operations: None Procedures: 2-D Echocardiogram, - - liver biopsy Summary of Care Provided: Hospital course: The patient is a 80 year old M with pmhx of nonischemic CM, ICD in place, HTN, HLD, CKD IV who presented to the ER with c/o SOB with failed outpatient therapy for CAP. He was given Vanco and zosyn and admitted for sepsis / pna. He had hypotension, leukocytosis rater than 30,000, lactic acidosis of 3.6. Covid test was negative. MRSA swab was negative. A CT chest was obtained and showed mutliple bilateral nodules suggestive of metastatic disease, bilateral pleural effusions, basilar atelectasis, or infiltrate superimposed on emphysema and CHF, heterogeneous appearance of the liver suggestive of metastatic disease. CT abdomen also was consistent with metastatic disease of the liver, bilateral parapelvic cysts, 1.2 cm noncalcified nodule of the right lower lobe, bibasilar atelectasis or infiltrate. Infectious disease, nephrology, critical care were consulted. Echocardiogram was obtained and demonstrated more prominent pericardial effusion-small to moderate. He was taken for a liver biopsy which was consistent with metastatic disease. Kidney function continued to deteriorate. Sepsis was ruled out. Hospice referral was made, patient agreeable. The patient was discharged to inpatient hospice in stable condition. This patient was seen by Darrion Cooper PA-C under the supervision of Doctor Nehemias. [] Patient Problems: Active and Suspected Problems (Last Reviewed 07/04/20 @ 14:[address] Bowen Aranda MD) Pneumonia (Acute) Shortness of breath (Acute) Community acquired pneumonia (Acute) - Physical Exam Vitals/I&O's: Vital Signs Temp Pulse Resp BP Pulse Ox 97.7 F L 113 H 20 H 115/64 93 11/10/20 11:30 11/10/20 11:30 11/10/20 11:30 11/10/20 11:30 11/10/20 11:30 Oxygen Flow Rate (L/min) [9] 2 Oxygen Flow Rate (L/min) [8] 2 Oxygen Flow Rate (L/min) [7] 2 Oxygen Flow Rate (L/min) [6] 2 Oxygen Flow Rate (L/min) [5] 2 Oxygen Flow Rate (L/min) [4] 2 Oxygen Flow Rate (L/min) [3] 2 Oxygen Flow Rate (L/min) [2] 2 Oxygen Flow Rate (L/min) [1 ( 2 Initial Baseline)] Oxygen Flow Rate (L/min) 2 Oxygen Delivery Method [9] Nasal Cannula Oxygen Delivery Method [8] Nasal Cannula Oxygen Delivery Method [7] Nasal Cannula Oxygen Delivery Method [6] Nasal Cannula Oxygen Delivery Method [5] Nasal Cannula Oxygen Delivery Method [4] Nasal Cannula Oxygen Delivery Method [3] Nasal Cannula Oxygen Delivery Method [2] Nasal Cannula Oxygen Delivery Method [1 ( Nasal Cannula Initial Baseline)] Oxygen Delivery Method Nasal Cannula Weight: 115 lb 4.828 oz Body Mass Index (BMI) 18.0 Intake and Output for Last 24 Hours 11/08/20 11/09/20 11/10/20 23:59 23:59 23:59 Intake Total 1838.33 / 1888.33 2095.00 / 2095.00 836.67 / 836.67 Output Total 250 / 250 Balance 1838.33 / 1888.33 1845.00 / 1845.00 836.67 / 836.67 General: Alert, Oriented x3, Cooperative HEENT: Atraumatic, PERRLA, EOMI, Normocephalic Neck: Supple, No JVD, Negative Carotid Bruits Lungs: Clear to auscultation, Normal air movement Cardiovascular: Regular rate, No murmurs Abdomen: Bowel Sounds Present, Soft, Non Tender Extremities: No edema, Capillary Refill Less than 3 Seconds Skin: No rashes, No breakdown Musculoskeletal: No Tenderness to Palpation of Joints or Extremities Neurological: Cranial nerves II-XII grossly intact Psych/Mental Status: Normal Affect, Appropriate, Alert and oriented to time, place, person, mood and affect Microbiology Past 72 Hours 11/05/20 15:45 Blood Culture (Wb) - Anticubital Right Blood Culture - Preliminary No growth in 48 hours. 11/05/20 16:55 Urine, Clean Catch Urine Culture - Final Culture exhibits no growth. 11/05/20 15:25 Blood Culture (Wb) - Anticubital Left Blood Culture - Preliminary No growth in 48 hours. Laboratory Results 11/07/20 04:30: Diff Path Review Reviewed 11/08/20 06:16: Diff Path Review Reviewed 11/09/20 09:10: Diff Path Review Reviewed 11/09/20 14:50: Ur Random Sodium 23, Urine Creatinine 55.20 11/10/20 05:35: WBC 37.6 H*, RBC 3.62 L, Hgb 10.8 L, Hct 31.9 L, MCV 88.1, MCH 29.8, MCHC 33.9, RDW Std Deviation 52.9 H, RDW Coeff of Bala 17.2 H, Plt Count 132 L, MPV 10.4, Neut % (Auto) Not Reportable, Absolute Neuts (auto) 26.3 H, Absolute Lymphs (auto) 6.40 H, Total Counted 100, Neutrophils % (Manual) 65, Band Neutrophils % 5, Lymphocytes % (Manual) 17 L, Monocytes % (Manual) 8, Metamyelocytes % 5 H, Diff Path Review Reviewed, Platelet Estimate ADEQUATE, RBC Morphology NORM C+C 11/10/20 05:35: Sodium 139, Potassium 3.9, Chloride 105, Carbon Dioxide 19.0 L, Anion Gap 15, BUN 95 H, Creatinine 6.23 H, Estim Creat Clear Calc 7.00, Est GFR (MDRD) Af Amer 11 L, Est GFR (MDRD) Non-Af 9 L, BUN/Creatinine Ratio 15.2, Glucose 132 H, Calcium 7.1 L, Magnesium 2.3, Total Bilirubin 0.80, AST 96 H, ALT 47, Alkaline Phosphatase 791 H, Total Protein 4.3 L, Albumin 1.6 L, Globulin 2.7, Albumin/Globulin Ratio 0.6 L Current Medications Acetaminophen (Acetaminophen 325 Mg Tablet) 650 mg PO Q6H PRN PRN PRN Reason: Pain Score 1-10/Temp > 100.7 F Last Admin: 11/10/20 03:18 Dose: 650 mg Documented by: Albuterol Sulfate (Albuterol 2.5 Mg/3 Ml Vial.Neb.) 2.5 mg INHALATION Q2H PRN PRN PRN Reason: SOB/Wheezing Last Admin: 11/10/20 09:02 Dose: 2.5 mg Documented by: Aspirin (Aspirin E.C. 81 Mg Tablet) 81 mg PO DAILY@0800 LUZ Last Admin: 11/10/20 14:27 Dose: Not Given Documented by: Atorvastatin Calcium (Atorvastatin Calcium 40 Mg Tablet) 40 mg PO QHS [facility] Last Admin: 11/09/20 21:19 Dose: 40 mg Documented by: Heparin Sodium (Porcine) (Heparin Injection (Vial) 5,000 Unit/Ml Vial) 5,000 unit SC Q12 [facility] Last Admin: 11/10/20 07:41 Dose: Not Given Documented by: Sodium Bicarbonate 150 meq/ (Dextrose) 1,150 mls @ 100 mls/hr IV .[id number] [facility] Last Infusion: 11/10/20 12:44 Dose: 100 mls/hr Documented by: Sodium Chloride () 500 mls @ 0 mls/hr IV .Q0M [facility] Stop: 11/10/20 23:59 Last Infusion: 11/10/20 10:35 Dose: Infused Documented by: Nutritional Formula (Lactose Free) (Ensure Enlive 120 Ml Liquid) 120 ml PO 4X/DAY [facility] Last Admin: 11/10/20 14:27 Dose: Not Given Documented by: Ondansetron HCl (Ondansetron 4 Mg/2 Ml Vial) 4 mg IV Q8H PRN PRN PRN Reason: NAUSEA/VOMITING Sodium Chloride (0.9% Saline Lock 10 Ml Syringe) 10 - 40 ml IV UD PRN PRN Reason: SALINE FLUSH Last Admin: 11/08/20 18:47 Dose: 10 ml Documented by: Discharge Diet: No Restrictions Discharge Activity: - - as directed by hospice Home Medications: Medications to take at Discharge nitroglycerin 0.4 mg sublingual tablet 0.4 mg SUBLINGUAL Q5M PRN 03/28/18 Aspirin [Aspirin EC] 81 mg PO DAILY@0800 11/05/20 Rosuvastatin Calcium 20 mg PO DAILY 11/05/20 megestrol 40 mg tablet 40 mg PO BID tab 11/05/20 Primary Care Physician: Stanton Leonard DO [Primary Care Provider] - Please Follow Up With: Hospice When: today Disposition: Hospice Medical Facility Minutes spent on discharge:: 35 Patient Condition:: Stable Medical Necessity - Tobacco Use Smoking Status: Former smoker Tobacco Use: Cigarettes Meaningful Use Info Meaningful Use Diagnoses (Choose all that apply): None applicable
== END 2020-11-10 16:10 | disposition hospice, inpatient (51) | DRG 193 ==
LOC: ED 17:42 → PCU 18:33 → ICU 22:22 → PCU 11-07 17:57
PROVIDERS: Hospitalist; Internal Medicine Critical Care Medicine; Internal Medicine Infectious Disease; Internal Medicine Nephrology; Admitting Provider Internal Medicine; Emergency Provider Emergency Medicine; PCP Family Medicine; Visit Provider Internal Medicine
DX: J18.9 Pneumonia, unspecified organism (principal); N17.0 Acute kidney failure with tubular necrosis; I42.8 Other cardiomyopathies; R64 Cachexia; C78.00 Secondary malignant neoplasm of unspecified lung; C78.7 Secondary malignant neoplasm of liver and intrahepatic bile duct; G93.40 Encephalopathy, unspecified; I50.30 Unspecified diastolic (congestive) heart failure; I13.0 Hypertensive heart and chronic kidney disease with heart failure and stage 1 through stage 4 chronic kidney disease, or unspecified chronic kidney disease; N18.4 Chronic kidney disease, stage 4 (severe); E87.2 Acidosis; J98.11 Atelectasis; I31.3 Pericardial effusion (noninflammatory); I25.10 Atherosclerotic heart disease of native coronary artery without angina pectoris; C80.1 Malignant (primary) neoplasm, unspecified; E78.5 Hyperlipidemia, unspecified; I44.7 Left bundle-branch block, unspecified; I73.9 Peripheral vascular disease, unspecified; I77.1 Stricture of artery; I27.20 Pulmonary hypertension, unspecified; Z66 Do not resuscitate; F03.90 Unspecified dementia, unspecified severity, without behavioral disturbance, psychotic disturbance, mood disturbance, and anxiety; Z79.82 Long term (current) use of aspirin; Z80.3 Family history of malignant neoplasm of breast; Z82.3 Family history of stroke; Z82.49 Family history of ischemic heart disease and other diseases of the circulatory system; Z87.01 Personal history of pneumonia (recurrent); Z95.5 Presence of coronary angioplasty implant and graft; Z95.810 Presence of automatic (implantable) cardiac defibrillator; Z87.891 Personal history of nicotine dependence
CPT/HCPCS: 36415; 70450; 71046; 71250; 74176; 77012; 80048; 80053; 80202; 81001; 82570; 83605; 83735; 84300; 84484; 85025; 85610; 85730; 87040; 87086; 87426; 87449; 87633; 87635; 87641; 88172; 88305; 88307; 88313; 88341; 88342; 92507; 92526; 93005; 93308; 94640; 97110; 97162; 97166; 97530; 97802; 99155; 99156; 99157; 99251; 99285; J7030; J7040; J7050; P9612; A4216; G0463; J1940; U0002